=== PATIENT | female | born 1965 | race Caucasian/White ===

== ENCOUNTER → 2016-12-01 | Outpatient (CLI) | payer BC ==
--- NOTE | 2016-12-01 15:55 | MAMMOGRAPHY REPORT ---
BILATERAL DIGITAL SCREENING MAMMOGRAM TOMOSYNTHESIS WITH CAD: 12/01/2016 CLINICAL HISTORY: Routine screening. Patient has no complaints. TECHNIQUE: Breast tomosynthesis in addition to standard 2D mammography was performed. Current study was also evaluated with a Computer Aided Detection (CAD) system. COMPARISON: Comparison is made to exams dated: 08/04/2015 mammogram, 05/08/2013 mammogram, 04/24/2012 mammogram, 04/26/2011 mammogram, and 07/31/2014 mammogram - [facility]. BREAST COMPOSITION: There are scattered areas of fibroglandular density in both breasts. FINDINGS: No suspicious masses, calcifications, or areas of architectural distortion are noted in e ither breast. There has been no significant interval change compared to prior exams. Scattered bilat eral benign-appearing calcifications are not significantly changed. A square marker ahn a mole on the left 12:00 breast. IMPRESSION: ACR BI-RADS CATEGORY 2: BENIGN There is no mammographic evidence of malignancy. A 1 year screening mammogram is recommended. The p atient will receive written notification of the results. Approximately 10% of breast cancers are not detected with mammography. A negative mammographic repor t should not delay biopsy if a clinically suggestive mass is present. Lesly Baird M.D. ah/:12/01/2016 15:24:19 Manager Of Housekeeping: Kemi MONTELONGO(Jessica)(M), [facility] letter sent: Normal 1/2 BI-RADS Code: ACR BI-RADS Category 2: Benign
== END | disposition home or self-care (01) ==
LOC: C.MAMM 13:25
PROVIDERS: ATTEND Obstetrics & Gynecology
DX: Z12.31 Encounter for screening mammogram for malignant neoplasm of breast (principal)

== ENCOUNTER → 2017-02-03 | Outpatient (CLI) | payer BC ==
--- NOTE | 2017-02-03 16:17 | MAMMOGRAPHY REPORT ---
UNILATERAL LEFT DIGITAL DIAGNOSTIC MAMMOGRAM TOMOSYNTHESIS WITH CAD AND TARGETED LEFT ULTRASOUND: 02/03 CLINICAL HISTORY: 51-year-old woman presents with new episodes of bloody left nipple discharge occurr ing over the past week. Additional bloody nipple discharge was elicited during ultrasound scanning f or this exam. TECHNIQUE: Left CC and MLO 2-D digital and tomosynthesis images, spot magnification left CC and ML vi ews were obtained. Current study was also evaluated with a Computer Aided Detection (CAD) system. COMPARISON: Comparison is made to exams dated: 12/01/2016 mammogram, 08/04/2015 mammogram, 07/31/2014 mammogram, 05/08/2013 mammogram, and 04/26/2011 ultrasound - [facility]. BREAST COMPOSITION: There are scattered areas of fibroglandular density in the left breast. FINDINGS: There are punctate, round and rim/coarse calcifications diffusely throughout the middle and anterior left breast. When comparing back to prior available mammograms, the microcalcifications ap pear similar dating back to at least 04/24/2012, given slight difference is in technique comparing [employer] mammograms to [facility] mammograms. The microcalcifications approximately 4 cm in yeung sverse dimension by 4 cm in AP by 4 cm in craniocaudal dimension. Some of the microcalcifications ar e increased compared to the 2009 mammograms. None the calcifications demonstrate definitive layering on the spot magnification ML view to confirm benign milk of calcium. There is no evidence of a new s uspicious mass, focal area of architectural distortion or developing asymmetry. Targeted ultrasound was performed in the periareolar and retroareolar left breast. Bloody nipple dis charge was elicited while scanning in the lower inner periareolar aspect of the breast. Numerous nor mal-appearing milk ducts are seen in the retroareolar aspect of the breast. There is a questionable hypoechoic mass versus fat lobule in the 8:00 periareolar left breast measuring 6.2 x 2.7 mm in the a nti-radial plane. This is difficult to visualize and measure in the radial plane. However, given th e patient's symptoms definitive characterization with ultrasound guided core biopsy is recommended as this could represent an intraductal mass. Additionally, would recommend sampling of some of the rep resentative microcalcifications, given a possible slow increase since 2008. The most prominent group ing is located in the 12:00 anterior left breast. IMPRESSION: ACR BI-RADS CATEGORY 4B: INTERMEDIATE SUSPICION FOR MALIGNANCY, TARGETED ULTRASOUND ACR BI-RADS CATEGORY 4B: INTERMEDIATE SUSPICION FOR MALIGNANCY 1. Ultrasound guided core needle biopsy is recommended for a possible mass versus fat lobule in the 8:00 periareolar left breast measuring 6 mm. 2. Stereotactic guided left breast biopsy is recommended for microcalcifications seen throughout the middle and anterior left breast spanning approximately 4 cm. The most prominent grouping is in the approximate 12:00 anterior left breast and this could be targeted for stereotactic biopsy. These results and recommendations were discussed with the patient at the time of the exam. She tenta tively scheduled the left breast biopsies prior to leaving our department. Pathology results should be closely reviewed to assess if the results could explain the patient's new left bloody nipple disch arge. Otherwise, an MRI may be needed. Approximately 10% of breast cancers are not detected with mammography. A negative mammographic report should not delay biopsy if a clinically suggestive mass is present. Michelle Cruz M.D. ay/:02/03/2017 15:46:41 Charge Account Authorizer: Ankita MONTELONGO(Jessica)(Rivka), [facility] letter sent: Abnormal 4/5 BI-RADS Code: ACR BI-RADS Category 4B: Intermediate Suspicion For Malignancy Ultrasound BI-RADS: ACR BI-RADS Category 4B: Intermediate Suspicion For Malignancy
== END | disposition home or self-care (01) ==
LOC: C.MAMM 09:40
PROVIDERS: ATTEND Nurse Practitioner
DX: N64.52 Nipple discharge (principal); R92.0 Mammographic microcalcification found on diagnostic imaging of breast

== ENCOUNTER → 2017-04-13 | Outpatient (CLI) | payer BC ==
[~2017-04-13] MED LIST: GADAVIST IV PRN
--- NOTE | 2017-04-14 14:04 | MAMMOGRAPHY REPORT ---
BREAST MRI OF BOTH BREASTS : 04/13/2017 CLINICAL HISTORY: 51-year-old woman with a history of left bloody nipple discharge who presented for diagnostic workup in February 2017. A subtle, possible intraductal mass was identified in the subareolar left breast for which core biopsy was performed, and stereotactic biopsy was performed of punctate m icrocalcifications in the 12:00 anterior left breast. Both biopsies yielded benign results, but no p apilloma or other abnormality to explain the nipple discharge. Patient presents for further evaluati on. COMPARISON: Comparison is made to exams dated: 02/09/2017 mammogram, 02/09/2017 ultrasound biopsy, 017 stereotactic biopsy, 02/03/2017 mammogram, 12/01/2016 mammogram, and 08/04/2015 mammogram - [facility]. TECHNIQUE: Using a 1.5 Helene magnet and dedicated breast coil, multisequence axial images were obtain ed through the breasts. After uneventful IV administration of 7 mL of Gadavist, dynamic multiphase c ontrast-enhanced axial images, and sagittal postcontrast were obtained. Temporal subtraction axial i mages and 3-D MIP images are provided. Everything was then reviewed on a 3-D workstation, [employer]. FINDINGS: There is minimal background parenchymal enhancement of the breasts. There is a small, 2.7 x 5.4 x 2.7 mm tiny focus of enhancement in the subareolar left breast, 8 mm deep to the nipple (axia l page 75/116, sagittal page 25/120). This subtle focus of enhancement is within 5 mm of the suscept ibility artifact from the ribbon-shaped biopsy marker clip denoting the site of prior benign ultrasou nd-guided core biopsy. It is T2 isointense, and demonstrates persistent kinetics. Given the small s ize of this focus of enhancement, it is unclear if it could simply be within the range of normal back ground, represent mild post biopsy change or possibly represent a small intraductal mass such as a pa pilloma. Susceptibility artifact from a second biopsy marker is seen in the 12:[address], 2.5 cm from the nipple, which denotes the site of prior benign stereotactic biopsy. There is no other suspicious enhancing mass, suspicious on mass enhancement, architectural distortion or suspicio us kinetics bilaterally. No focal skin thickening or nipple retraction. No suspicious axillary lymp hadenopathy bilaterally. IMPRESSION: ACR BI-RADS CATEGORY 4: SUSPICIOUS 1. There is no evidence of a suspicious mass or suspicious non-mass enhancement within either breast . 2. There is a single small focus of enhancement, measuring 2.7 x 5.4 x 2.7 mm, in the subareolar ant erior left breast, within close proximity, approximately 5 mm, of the ribbon-shaped biopsy marker cli p denoting the site of ultrasound-guided core biopsy. Given the small size it is difficult to determ ine if this could be within the range of background enhancement, post biopsy changes or possibly repr esent a small intraductal papilloma. If the patient is still symptomatic with brownish/bloody nipple discharge, can consider localizing the ribbon-shaped biopsy marker clip and taking additional tissue 5 mm medially and 4 mm superior. Alternatively, if the patient is asymptomatic, can consider a foll ow-up MRI to assess stability in 6 months, given the two recent benign biopsies. Michelle Cruz M.D. ay/:04/13/2017 21:49:51 Sugar Boiler: regional branch manager, [facility] letter sent: Abnormal 4/5 BI-RADS Code: ACR BI-RADS Category 4: Suspicious
== END | disposition home or self-care (01) ==
LOC: C.MRI 06:40
PROVIDERS: ATTEND Surgery
DX: N64.52 Nipple discharge (principal)

== ENCOUNTER → 2017-08-01 | Outpatient (CLI) | payer BC ==
--- NOTE | 2017-08-01 09:36 | DIAGNOSTIC IMAGING REPORT ---
CHEST 2 VIEWS ROUTINE HISTORY: 52 years-old Female R05 acute productive cough COMPARISON: None available TECHNIQUE: PA and lateral views of the chest FINDINGS: Cardiomediastinal and hilar silhouettes are within normal limits. There is no pneumothorax, pleural effusion, focal airspace consolidation or overt pulmonary edema. Bones of the chest are grossly intact. IMPRESSION: No acute cardiopulmonary process. The above report was generated using voice recognition software. It may contain grammatical, syntax or spelling errors. Electronically signed by: Carlos Ray M.D. 08/01/2017 9:34 AM Dictated Date/Time: 08/01/2017 9:33 AM
== END | disposition home or self-care (01) ==
LOC: C.RAD1850 09:20
PROVIDERS: ATTEND Student in an Organized Health Care Education/Training Program
DX: R05 Cough (principal)

== ENCOUNTER → 2017-08-04 | Outpatient (CLI) | payer BC ==
[2017-08-04 19:29] LABS: CREATININE 0.79 mg/dl (0.60-1.20)
== END | disposition home or self-care (01) ==
LOC: C.LAB 18:25
PROVIDERS: ATTEND Family Medicine
DX: R05 Cough (principal)

== ENCOUNTER → 2017-12-05 | Outpatient (CLI) | payer OTHER ==
--- NOTE | 2017-12-06 07:46 | MAMMOGRAPHY REPORT ---
THIS REPORT HAS BEEN AMENDED. BILATERAL DIGITAL SCREENING MAMMOGRAM TOMOSYNTHESIS WITH CAD: 12/05/2017 CLINICAL HISTORY: Routine screening. TECHNIQUE: Breast tomosynthesis in addition to standard 2D mammography was performed. Current study was also evaluated with a Computer Aided Detection (CAD) system. COMPARISON: Comparison is made to exams dated: 12/01/2016 mammogram, 08/04/2015 mammogram, 07/31/2014 mammogram, 05/08/2013 mammogram, 04/24/2012 mammogram, and 02/09/2017 mammogram - [facility]. BREAST COMPOSITION: The tissue of both breasts is heterogeneously dense, which may obscure small mas ses. FINDINGS: There are diffuse bilateral benign-appearing punctate microcalcifications in the breasts. 2 stable metallic biopsy markers in the anterior subareolar left breast. No obvious new mass, asymme try, architectural distortion or cluster of microcalcifications is seen. IMPRESSION: ACR BI-RADS CATEGORY 0: INCOMPLETE EVALUATION: NEED ADDITIONAL IMAGING EVALUATION 1. Stable bilateral mammograms, including postbiopsy changes in the left breast, without definite ma mmographic evidence of malignancy. 2. However, a prior breast MRI performed in April 2017 was coded as BI-RADS 3, probably benign, and a six-month follow-up breast MRI was recommended to ensure stability of a small enhancing focus in t scott anterior left breast. Additional clinical information is also needed as to if the patient is expe riencing any further episodes of nipple discharge. The patient will be called to schedule the MRI appointment. Approximately 10% of breast cancers are not detected with mammography. A negative mammographic report should not delay biopsy if a clinically suggestive mass is present. Michelle Cruz M.D. ay/:12/05/2017 21:17:53 Resident Associate: Kemi MONTELONGO(R)(M), [facility] letter sent: Addl Imaging 0 BI-RADS Code: ACR BI-RADS Category 0: Incomplete Evaluation: Need Additional Imaging Evaluation AMENDMENT: 12/13/2017 Michelle Cruz M.D. A prior MRI report dated 10/17/2017 performed at [facility] became available and based on sugar chavez MRI interpretation, the exam was coded as BI-RADS 1, negative. The report stated that the previou sly observed focus of enhancement in the subareolar left breast was no longer identified. Therefore, given that the current bilateral mammograms are stable and no MRI evidence of intraductal mass or ma lignancy was seen, would recommend routine screening mammography in 1 year, unless the patient has an y new symptoms. Amended BI-RADS: ACR BI-RADS Category 2: Benign letter sent: Normal 09/06
== END | disposition home or self-care (01) ==
LOC: C.MAMM 08:38
PROVIDERS: ATTEND Obstetrics & Gynecology
DX: Z12.31 Encounter for screening mammogram for malignant neoplasm of breast (principal); R92.8 Other abnormal and inconclusive findings on diagnostic imaging of breast

== ENCOUNTER → 2017-12-20 | Outpatient (CLI) | payer OTHER | END | disposition home or self-care (01) | LOC: C.RC 12:45 | PROVIDERS: ATTEND Family Medicine | DX: R05 Cough (principal) ==

== ENCOUNTER 2023-03-16 09:56 | Inpatient (IN) ==
--- NOTE | 2023-03-16 10:07 | Emergency Department Note ---
Impression & Plan Right lower lobe pneumonia, Nausea vomiting and diarrhea, COPD (chronic obstructive pulmonary disease), Hypomagnesemia, Mild renal insufficiency, Hypotension ED Provider Note NAME: CHATA BUCK AGE: 57 SEX: F ARRIVES VIA: Walk-In INFORMANT: Patient ED PROVIDER(S): Cesar Rodas MD CHIEF COMPLAINT: Fever, cough, referred PLAN: Disposition: Admit MEDICAL DECISION MAKING: The patient is a pleasant 57-year-old woman with a past medical history of recently suspected COPD where she is undergoing further testing, history of lichen planus on cyclosporin who presents to the emergency department referred from urgent care for fevers, cough, congestion, shortness of breath with nausea, vomiting and diarrhea ongoing for the past 48 hours. She reports having 6-8 episodes of diarrhea a day. She denies chest pain but does feel short of breath. She reports some abdominal soreness but denies any discrete area of pain. Denies any urinary symptoms. She denies any sick contacts. She denies any known tick bites. On arrival the patient is fatigued and uncomfortable but no acute distress, afebrile with temperature of 37.6 heart in the 100s and vital signs otherwise stable. O2 saturation is 93% on room air. She appears clinically dry. She has intermittent wheeze and rhonchi bilateral lung johnson with normal respiratory effort. EKG without overt acute ischemia. CXR negative for acute cardiopulmonary process. WBC 13.4K with neutrophil predominance though no left shift. H/H and platelets within normal limits. Chemistry without metabolic acidosis. Creatinine 1.2 consistent with patient's clinically dry appearance reflecting mild acute renal insufficiency. Lactic acid 0.7, within normal limits. Magnesium 1.6 with repletion provided. LFTs unremarkable. High-sensitivity troponin 6.2, within normal limits. Lipase not elevated. Procalcitonin is not elevated. UA without convincing evidence of infection. Respiratory viral panel/Bio[employer] was negative. CTA of the chest was performed was negative for PE. Note is made of small peripheral densities in the base of right lower lobe which is suspicious for pneumonitis and in the clinical context of pneumonia. Additional note is made of suspected small airway disease with mosaic attenuation seen throughout both lungs. CT of the abdomen pelvis demonstrates question of cystitis though patient denies urinary symptoms and UA without evidence of infection. Otherwise no intra-abdominal findings. Of note, while the patient did present normotensive she did develop hypotension which was subsequently fluid responsive following 2 L of IV fluid hydration. Treatment for CAP initiated with ceftriaxone and doxycycline. The patient did report feeling improved following steroids and DuoNeb. She does agree with plan for admission for further management given her immunocompromise status and pneumonia. Case was discussed with Dr. Liu, [facility], who will evaluate the patient for admission. Triage Nursing notes reviewed and agree them. Prior/outside medical records reviewed Vital Signs: reviewed Differential diagnosis: Reactive airway disease, pneumonia, pneumothorax, COPD, CHF, infections, cardiac ischemia, pulmonary embolism, musculoskeletal, gastrointestinal, as well as other pathologies. ER treatment provided: See below. Diagnostics interpreted by me: ECG: Sinus tachycardia, 101 bpm, no ectopy, but branch block, no overt ST depression, QTc 474, QRS 124. Cardiac Monitoring: An order for continuous cardiac monitoring was placed and demonstrated sinus tachycardia, 101 bpm, no ectopy. Laboratory studies: See below Imaging studies: See below Consultation(s): Case was discussed with Dr. Liu, [facility], who will evaluate the patient for admission. HPI: The patient is a pleasant 57-year-old woman with a past medical history of recently suspected COPD where she is undergoing further testing, history of lichen planus on cyclosporin who presents to the emergency department referred from urgent care for fevers, cough, congestion, shortness of breath with nausea, vomiting and diarrhea ongoing for the past 48 hours. She reports having 6-8 episodes of diarrhea a day. She denies chest pain but does feel short of breath. She reports some abdominal soreness but denies any discrete area of pain. Denies any urinary symptoms. She denies any sick contacts. She denies any known tick bites. ROS: See above HPI for pertinent positives & negatives. A total of 10 systems reviewed and were otherwise negative. VITALS:See Below PHYSICAL EXAMINATION: GENERAL: Awake, alert, fatigued/uncomfortable-appearing, in no distress HENT: Normocephalic, atraumatic. Oropharynx with dry mucous membranes and otherwise unremarkable. EYES: Normal conjunctiva. Sclera non-icteric. NECK: Supple. No nuchal rigidity. FROM. No JVD. RESPIRATORY: Intermittent wheeze and rhonchi bilateral lung johnson with normal respiratory effort. CARDIAC: Tachycardic rate, normal rhythm. Extremities warm and well perfused. Pulses equal. ABDOMEN: Soft, non-distended. No tenderness to palpation. No rebound or guarding. No masses. RECTAL: Deferred. MUSCULOSKELETAL: Chest examination reveals no tenderness. The back is sym metrical on inspection without obvious abnormality. There is no CVA tenderness to palpation. No joint edema. LOWER EXTREMITIES: Calves are equal size bilaterally and non-tender. No edema. No discoloration. NEURO: Normal sensorium. No sensory or motor deficits noted. SKIN: No rash or jaundice noted. ED COURSE: Critical Care: I have personally spent greater than 35 minutes of critical care time in the direct management of this patient. This includes bedside care, interpretation of diagnostic studies, and testing, discussion with consultants, patient, and family members, and other required patient management activities. This 35 minutes is in excess of all separately billable procedures. Cesar Rodas MD Past Med/Surg History Medical History Chronic back pain Chronic serous otitis media of right ear Chronic sinusitis Esophageal stricture x2 Hyperlipidemia NO MEDS Lesion of ear canal Lichen planus Mixed conductive and sensorineural hearing loss of both ears Mixed hearing loss of right ear Oral thrush re-occurring r/t antibiotics and steroids Otitis externa of left ear Otorrhea, right ear Peptic ulcer disease as a child Postnasal drip Psoriasis Scoliosis Sensorineural hearing loss of both ears Surgical History H/O vaginal hysterectomy History of colonoscopy History of dilatation and curettage x3 History of myringotomy BMT History of tooth extraction WISDOM TEETH S/P dilatation of esophageal stricture S/P tube myringotomy right ear T-Tube Family History Grandmother Family history of diabetes mellitus Sinusitis Family/Other Hypertension grandparent Aunt Cancer Sister Cancer Mother Allergies Sinusitis Cancer Other No family history of adverse response to anesthesia No family history of bleeding disorder Social History Smoking Status: Never smoker Second Hand Exposure: Yes (as a child); Do You Dip or Chew Tobacco: No; Hx Alcohol Use: No Hx Substance Use: No Preferred Language: Burmese Communication Ability: Effective 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 Beliefs That Will Affect Care: None Current Living Situation: Spouse current occupational status: employed current occupation: computer science instructor Feels Safe at Home: Yes Assistive Devices: Glasses Allergies Allergies Allergy/AdvReac Type Severity Reaction Status Date / Time Penicillins Allergy Unknown RASH & Verified 03/16/23 11:31 BLACKED OUT Home Meds Home Medications Medication Instructions Recorded Confirmed lifitegrast 5 % eye drops in a 2 drp ophthalmic (eye) BID 06/29/18 03/16/23 dropperette (Xiidra) multivitamin 1 tab PO DAILY 07/12/19 03/16/23 Lactobacillus acidophilus 1.5 mg 1,000 mmu cells PO DAILY 09/03/19 03/16/23 (250 million cell) capsule (Probiotic Acidophilus) omeprazole 40 mg capsule,delayed 40 mg PO BID 02/05/20 03/16/23 release cyclosporine 25 mg capsule See Rx Instructions .Route .COMPLEX 03/16/23 03/16/23 hydroxychloroquine 200 mg tablet 200 mg PO BID 03/16/23 03/16/23 latanoprost 0.005 % eye drops 1 drp ophthalmic (eye) HS 03/16/23 03/16/23 Previous Rx's Medication Instructions Recorded azelastine 137 mcg (0.1 %) nasal 2 spray intranasal BID #30 mL 02/06/20 spray aerosol Results & Data (ED) Vital Signs Vital Signs - 24 hr 03/16/23 09:57 03/16/23 10:43 03/16/23 11:10 Temperature 37.6 C H Temperature Source Oral Pulse Rate 108 H 108 H Pulse Rate [Apical] 106 H Pulse Rhythm Regular Pulse Rhythm [Apical] Respiratory Rate 18 18 18 Respiratory Effort / Characteristics Non-Labored Respiratory Depth Normal Blood Pressure 121/68 Blood Pressure [Left Arm] 88/62 L Blood Pressure Mean 85 Blood Pressure Mean [Left Arm] 70 Blood Pressure Position [Left Arm] Pulse Oximetry 93 93 89 L Oxygen Delivery Method Room Air Room Air Room Air Oxygen Flow Rate Sepsis Recent Fever Within 48 Hours Yes Sepsis New/Unexplained Change in Mental Status No Sepsis Action Taken by Nursing No Action Required Pulse Oximetry Post Tiitration 03/16/23 11:13 03/16/23 11:30 03/16/23 11:30 Temperature Temperature Source Pulse Rate Pulse Rate [Apical] 102 H Pulse Rhythm Pulse Rhythm [Apical] Regular Respiratory Rate 21 Respiratory Effort / Characteristics Non-Labored Respiratory Depth Normal Blood Pressure Blood Pressure [Left Arm] 90/65 L Blood Pressure Mean Blood Pressure Mean [Left Arm] 73 Blood Pressure Position [Left Arm] Sitting Pulse Oximetry 91 86 L 94 Oxygen Delivery Method Room Air Nasal Cannula Nasal Cannula Oxygen Flow Rate 2 2 Sepsis Recent Fever Within 48 Hours Sepsis New/Unexplained Change in Mental Status Sepsis Action Taken by Nursing Pulse Oximetry Post Tiitration 93 03/16/23 12:18 03/16/23 12:37 03/16/23 12:43 Temperature 37.6 C H Temperature Source Oral Pulse Rate 91 H Pulse Rate [Apical] 86 Pulse Rhythm Pulse Rhythm [Apical] Respiratory Rate 18 Respiratory Effort / Characteristics Respiratory Depth Blood Pressure Blood Pressure [Left Arm] 88/52 L Blood Pressure Mean Blood Pressure Mean [Left Arm] 64 Blood Pressure Position [Left Arm] Pulse Oximetry 93 Oxygen Delivery Method Nasal Cannula Oxygen Flow Rate 2 Sepsis Recent Fever Within 48 Hours Sepsis New/Unexplained Change in Mental Status Sepsis Action Taken by Nursing Pulse Oximetry Post Tiitration 03/16/23 13:40 03/16/23 14:25 03/16/23 15:00 Temperature 37 C Temperature Source Oral Pulse Rate 77 Pulse Rate [Apical] 82 70 Pulse Rhythm Pulse Rhythm [Apical] Respiratory Rate 21 19 Respiratory Effort / Characteristics Respiratory Depth Normal Blood Pressure 101/57 L Blood Pressure [Left Arm] 99/58 L Blood Pressure Mean 71 Blood Pressure Mean [Left Arm] 71 Blood Pressure Position [Left Arm] Pulse Oximetry 96 95 94 Oxygen Delivery Method Nasal Cannula Oxygen Flow Rate 2 Sepsis Recent Fever Within 48 Hours Sepsis New/Unexplained Change in Mental Status Sepsis Action Taken by Nursing Pulse Oximetry Post Tiitration 03/16/23 16:55 Temperature Temperature Source Pulse Rate Pulse Rate [Apical] 74 Pulse Rhythm Pulse Rhythm [Apical] Regular Respiratory Rate 20 Respiratory Effort / Characteristics Respiratory Depth Blood Pressure Blood Pressure [Left Arm] 99/58 L Blood Pressure Mean Blood Pressure Mean [Left Arm] 71 Blood Pressure Position [Left Arm] Sitting Pulse Oximetry 94 Oxygen Delivery Method Nasal Cannula Oxygen Flow Rate 2 Sepsis Recent Fever Within 48 Hours Sepsis New/Unexplained Change in Mental Status Sepsis Action Taken by Nursing Pulse Oximetry Post Tiitration Laboratory Data Attestation: I reviewed the patient's lab results. 03/16/23 10:35 03/16/23 10:35 Lab Results 03/16/23 03/16/23 03/16/23 Range/Units 10:35 10:35 10:45 WBC 13.47 H (4.8-10.8) K/ul RBC 4.75 (4.20-5.40) M/uL Hgb 13.2 (12.0-16.0) g/dl Hct 39.0 (37.0-47.0) % MCV 82.1 (80.0-100.0) fL MCH 27.8 (25.0-34.0) pg MCHC 33.8 (32.0-36.0) g/dL RDW Std Deviation 40.6 (36.4-46.3) fL RDW Coeff of Tresa 13.6 (11.5-14.5) % Plt Count 238 (130-400) K/uL MPV 11.8 (9.4-12.4) fL Immature Gran % (Auto) 0.4 % Neut % (Auto) 88.8 % Lymph % (Auto) 5.8 % [place] % (Auto) 4.8 % Eos % (Auto) 0.0 % Baso % (Auto) 0.2 % Neut # (Auto) 11.96 H (1.40-6.50) K/uL Lymph # (Auto) 0.78 L (1.2-3.4) K/uL [place] # (Auto) 0.64 H (0.11-0.59) K/uL Eos # (Auto) 0.00 (0-0.50) K/uL Baso # (Auto) 0.03 (0-0.2) K/uL Immature Gran # (Auto) 0.06 (0.01-0.20) K/uL Sodium 137 (136-145) mmol/L Potassium 4.1 (3.5-5.1) mmol/L Chloride 105 (98-107) mmol/L Carbon Dioxide 24 (21-32) mmol/L Anion Gap 8 (3-11) BUN 14 (6-23) mg/dl Creatinine 1.21 H (0.6-1.2) mg/dl Est Cr Clr Drug Dosing 46.7 ml/min Est GFR ( Amer) 57.9 ml/min Est GFR (Non-Af Amer) 50.0 ml/min BUN/Creatinine Ratio 11.6 (10-20) Glucose 97 (70-99(Fasting)) mg/dl Lactate (0.4-2.0) mmol/L Calcium 8.9 (8.6-10.3) mg/dl Magnesium 1.6 L (1.7-2.4) mg/dl Total Bilirubin 0.8 (0.2-1.0) mg/dl AST 22 (13-39) U/L ALT 20 (7-52) U/L Alkaline Phosphatase 77 (34-104) U/L Troponin I High Sens 6.2 (0-14) pg/ml Total Protein 7.4 (6.0-8.3) gm/dl Albumin 4.5 (3.4-5.0) gm/dl Globulin 2.9 (2.5-4.0) gm/dl Albumin/Globulin Ratio 1.6 (0.9-2) Lipase 25 (11-82) U/L Procalcitonin (0-0.5) ng/ml Urine Color Urine Appearance (Clear) Urine pH (4.5-7.5) Ur Specific [place] (1.000-1.030) Urine Protein (Negative) Urine Glucose (UA) (Negative) Urine Ketones (Negative) Urine Blood (Negative) Urine Nitrite (Negative) Urine Bilirubin (Negative) Urine Urobilinogen (Negative) Ur Leukocyte Esterase (Negative) Urine WBC (Auto) (0-5) /hpf Urine RBC (Auto) (0-4) /hpf U Hyaline Cast (Auto) (0-5) /lpf U Epithel Cells (Auto) (0-5) /lpf Urine Bacteria (Auto) (Negative) Adenovirus (PCR) Not Detected (NotDetected) B. pertussis DNA (PCR) Not Detected (NotDetected) B.parapertussis DNA PCR Not Detected (NotDetected) C. pneumoniae DNA (PCR) Not Detected (NotDetected) Coronavirus OC43 (PCR) Not Detected (NotDetected) Coronavirus HKU1 (PCR) Not Detected (NotDetected) Coronavirus 229E (PCR) Not Detected (NotDetected) SARS-CoV-2 (PCR) Not Detected (NotDetected) Coronavirus NL63 (PCR) Not Detected (NotDetected) Human Metapneumovir PCR Not Detected (NotDetected) Influenza Type A (PCR) Not Detected (NotDetected) Influenza Type B (PCR) Not Detected (NotDetected) M. pneumoniae (PCR) Not Detected (NotDetected) Parainfluenza 1 (PCR) Not Detected (NotDetected) Parainfluenza 2 (PCR) Not Detected (NotDetected) Parainfluenza 3 (PCR) Not Detected (NotDetected) Parainfluenza 4 (PCR) Not Detected (NotDetected) RSV (PCR) Not Detected (NotDetected) Entero/Rhino (PCR) Not Detected (NotDetected) 03/16/23 03/16/23 03/16/23 Range/Units 12:50 12:53 15:30 WBC (4.8-10.8) K/ul RBC (4.20-5.40) M/uL Hgb (12.0-16.0) g/dl Hct (37.0-47.0) % MCV (80.0-100.0) fL MCH (25.0-34.0) pg MCHC (32.0-36.0) g/dL RDW Std Deviation (36.4-46.3) fL RDW Coeff of Tresa (11.5-14.5) % Plt Count (130-400) K/uL MPV (9.4-12.4) fL Immature Gran % (Auto) % Neut % (Auto) % Lymph % (Auto) % [place] % (Auto) % Eos % (Auto) % Baso % (Auto) % Neut # (Auto) (1.40-6.50) K/uL Lymph # (Auto) (1.2-3.4) K/uL [place] # (Auto) (0.11-0.59) K/uL Eos # (Auto) (0-0.50) K/uL Baso # (Auto) (0-0.2) K/uL Immature Gran # (Auto) (0.01-0.20) K/uL Sodium (136-145) mmol/L Potassium (3.5-5.1) mmol/L Chloride (98-107) mmol/L Carbon Dioxide (21-32) mmol/L Anion Gap (3-11) BUN (6-23) mg/dl Creatinine (0.6-1.2) mg/dl Est Cr Clr Drug Dosing ml/min Est GFR ( Amer) ml/min Est GFR (Non-Af Amer) ml/min BUN/Creatinine Ratio (10-20) Glucose (70-99(Fasting)) mg/dl Lactate 0.7 (0.4-2.0) mmol/L Calcium (8.6-10.3) mg/dl Magnesium (1.7-2.4) mg/dl Total Bilirubin (0.2-1.0) mg/dl AST (13-39) U/L ALT (7-52) U/L Alkaline Phosphatase (34-104) U/L Troponin I High Sens (0-14) pg/ml Total Protein (6.0-8.3) gm/dl Albumin (3.4-5.0) gm/dl Globulin (2.5-4.0) gm/dl Albumin/Globulin Ratio (0.9-2) Lipase (11-82) U/L Procalcitonin 0.13 (0-0.5) ng/ml Urine Color Yellow Urine Appearance Clear (Clear) Urine pH 6.5 (4.5-7.5) Ur Specific [place] 1.020 (1.000-1.030) Urine Protein 1+ H (Negative) Urine Glucose (UA) Negative (Negative) Urine Ketones Negative (Negative) Urine Blood Trace H (Negative) Urine Nitrite Negative (Negative) Urine Bilirubin Negative (Negative) Urine Urobilinogen Negative (Negative) Ur Leukocyte Esterase Negative (Negative) Urine WBC (Auto) 1-5 (0-5) /hpf Urine RBC (Auto) 5-10 H (0-4) /hpf U Hyaline Cast (Auto) 1-5 (0-5) /lpf U Epithel Cells (Auto) 10-20 H (0-5) /lpf Urine Bacteria (Auto) Negative (Negative) Adenovirus (PCR) (NotDetected) B. pertussis DNA (PCR) (NotDetected) B.parapertussis DNA PCR (NotDetected) C. pneumoniae DNA (PCR) (NotDetected) Coronavirus OC43 (PCR) (NotDetected) Coronavirus HKU1 (PCR) (NotDetected) Coronavirus 229E (PCR) (NotDetected) SARS-CoV-2 (PCR) (NotDetected) Coronavirus NL63 (PCR) (NotDetected) Human Metapneumovir PCR (NotDetected) Influenza Type A (PCR) (NotDetected) Influenza Type B (PCR) (NotDetected) M. pneumoniae (PCR) (NotDetected) Parainfluenza 1 (PCR) (NotDetected) Parainfluenza 2 (PCR) (NotDetected) Parainfluenza 3 (PCR) (NotDetected) Parainfluenza 4 (PCR) (NotDetected) RSV (PCR) (NotDetected) Entero/Rhino (PCR) (NotDetected) Administered Medications Doxycycline Hyclate 100 mg/ (Dextrose) 110 mls @ 50 mls/hr IV NOW STA Stop: 03/16/23 18:10 Last Admin: 03/16/23 16:47 Dose: 50 mls/hr Documented By: JEFFRY Discontinued Medications Albuterol (Albut/Ipratrop 3mg/0.5mg Neb 3 Ml Vial) 3 ml NEB NOW STA; Protocol Stop: 03/16/23 10:26 Last Admin: 03/16/23 10:52 Dose: 3 ml Documented By: SHANE Sodium Chloride (Nss 1000ml) 1,000 mls @ 999 mls/hr IV .Q1H1M ONE Stop: 03/16/23 11:20 Last Infusion: 03/16/23 11:54 Dose: 0 mls/hr Documented By: Admin: 03/16/23 10:47 Dose: 999 mls/hr Documented By: SHANE Acetaminophen (Ofirmev) 1,000 mg in 100 mls @ 400 mls/hr IV NOW STA Stop: 03/16/23 10:34 Last Infusion: 03/16/23 11:54 Dose: 0 mls/hr Documented By: Admin: 03/16/23 10:52 Dose: 400 mls/hr Documented By: SHANE Famotidine (Pepcid 20mg Iv Push) 20 mg in 5 mls @ 2.5 mls/min IV NOW STA Stop: 03/16/23 10:23 Last Admin: 03/16/23 10:50 Dose: 2.5 mls/min Documented By: SHANE Sodium Chloride (Nss 1000ml) 1,000 mls @ 999 mls/hr IV .Q1H1M ONE Stop: 03/16/23 13:31 Last Infusion: 03/16/23 13:40 Dose: 0 mls/hr Documented By: Admin: 03/16/23 12:35 Dose: 999 mls/hr Documented By: ÁNGELA Magnesium Sulfate/Dextrose (Magnesium Sulfate / D5w) 1 gm in 100 mls @ 100 mls/hr IV NOW STA Stop: 03/16/23 13:40 Last Infusion: 03/16/23 14:24 Dose: 0 mls/hr Documented By: Admin: 03/16/23 12:54 Dose: 100 mls/hr Documented By: JEFFRY Ceftriaxone Sodium (Rocephin) 2,000 mg in 70 mls @ 140 mls/hr IV NOW STA Stop: 03/16/23 15:40 Last Infusion: 03/16/23 16:18 Dose: 0 mls/hr Documented By: Admin: 03/16/23 15:37 Dose: 140 mls/hr Documented By: MADHURI Ioversol (Optiray 320 125ml) 120 ml IV ONCE ONE Stop: 03/16/23 13:27 Last Admin: 03/16/23 13:26 Dose: 120 ml Documented By: EMMA Methylprednisolone (Methylprednisolone 125 Mg/2 Ml Vial) 125 mg IV NOW STA Stop: 03/16/23 10:21 Last Admin: 03/16/23 10:48 Dose: 125 mg Documented By: SHANE Ondansetron HCl (Ondansetron Inj 2 Mg/Ml 2 Ml Vial) 4 mg IV NOW STA Stop: 03/16/23 10:23 Last Admin: 03/16/23 10:47 Dose: 4 mg Documented By: SHANE Imaging Data Radiologist's Impression: Chest X-Ray 03/16/23 10:21 XR chest 1V portable CLINICAL HISTORY: cough, fever TECHNIQUE: Single frontal radiograph of the chest was obtained. Comparison: None available at the time of this dictation. FINDINGS: No lines and tubes are seen. The cardiomediastinal silhouette is normal. The lungs are clear. No evidence of pleural effusion or pneumothorax. IMPRESSION: No acute abnormalities and in particular no radiographic evidence of pneumonia. ACT 112: Negative or not required by law. Electronically signed by: Trevor Mazariegos M.D. 03/16/2023 11:22 AM Chest CTA 03/16/23 12:31 CHEST CTA for PULMONARY ARTERIES CT DOSE: 2078.36 mGy.cm HISTORY: chest pain, sob, hypotensive, r/o PE TECHNIQUE: Multiaxial CT images of the chest were performed following the intravenous administration of contrast to evaluate the pulmonary arteries. 3D/Maximal intensity projection images were also obtained. Sagittal and coronal reformations were also reviewed. A dose lowering technique was utilized adhering to the principles of ALARA. COMPARISON STUDY: Chest CT 12/05/2018. FINDINGS: There is a 1.1 cm right thyroid nodule. This does not meet CT criteria for follow-up. Normal caliber thoracic aorta with no evidence for a dissection. No filling defects within the pulmonary arteries to suggest a pulmonary embolus. Normal esophagus. Limited views of the upper abdomen demonstrate a normal liver, spleen, and adrenal glands. No mediastinal or hilar lymphadenopathy. The heart is normal in size. No pleural or pericardial effusions. No acute fractures identified in the chest. No pneumothorax. The central airways are patent. Linear densities within the right middle lobe and lingula favor subsegmental atelectasis are scarring. There are small peripheral densities within the base of the right lower lobe. These are nonspecific but could represent a mild pneumonitis. There is a mosaic attenuation seen throughout the lungs. This favors air trapping. This could be due to small airways or small vessel disease. An atypical pneumonitis could also have a similar appearance. A 4 mm subpleural nodule within the left lower lobe on image 68. IMPRESSION: 1. No evidence for a pulmonary embolus. 2. There are small peripheral densities within the base of the right lower lobe. These are nonspecific but could represent a mild pneumonitis. 3. There is a mosaic attenuation seen throughout the lungs. This favors air trapping. This could be due to small airways or small vessel disease. An atypical pneumonitis could also have a similar appearance. 4. A 4 mm subpleural nodule within the left lower lobe. Please refer to below summary of Fleischner criteria recommendations for follow- up of incidental CT nodules (Sophie Michel, Guidelines for management of small p ulmonary nodules detected on CT scans: A statement from the Fleischner Society, Radiology 237: [phone].) SOLID NODULES Solitary nodule size: <6 mm * Low risk patients: no follow-up needed * high risk patients: optional CT at 12 months Solitary nodule size: 6-8 mm * Low risk patients: follow-up at 6-12 months, then consider further follow-up at 18-24 months * high risk patients: initial follow-up CT at 6-12 months and then at 18-24 months if no change Solitary nodule size: >8 mm * either low or high risk patients - consider follow-up CT at 3 months, and/or CT-PET, and/or biopsy Multiple nodules size: <6 mm * Low risk patients: no routine follow-up * high risk patients: optional CT at 12 months Multiple nodules size: 6-8 mm * Low risk patients: follow-up at 3-6 months, then consider further follow-up at 18-24 months * high risk patients: follow-up at 3-6 months, then at 18-24 months if no change Multiple nodules size: >8 mm * Low risk patients: follow-up at 3-6 months, then consider further follow-up at 18-24 months * high risk patients: follow-up at 3-6 months, then at 18-24 months if no change Note: newly detected indeterminate nodule in persons 35 years of age or older. * Low risk patients: minimal or absent history of smoking and/or other known risk factors * high risk patients: history of smoking or of other known risk factors (e.g. first degree relative with lung cancer, or exposure to asbestos, radon, uranium) * if a nodule up to 8 mm is partly solid or is ground glass further follow-up is required after 24 months to exclude possible slow growing adenocarcinoma (GEORGE) SUBSOLID NODULES Solitary pure ground-glass nodule * nodule size <6 mm - no CT follow-up required * nodule size >=6 mm - follow-up CT at 6-12 months, then every 2 years until 5 years Solitary part-solid nodule * nodule size <6 mm - no CT follow-up required * nodule size >=6 mm - follow-up CT at 3-6 months. If unchanged, and solid component remains <6 mm, then annual follow-up for 5 years Multiple subsolid nodules * nodule size <6 mm - follow-up CT at 3-6 months, consider further follow-up at 2 and 4 years if stable * nodule size >=6 mm - follow-up CT at 3-6 months, subsequent management based on the most suspicious nodule(s) ACT 112: Negative or not required by law. Electronically signed by: Tay Vidales M.D. 03/16/2023 3:21 PM Abdomen/Pelvis CT 03/16/23 12:40 CT SCAN OF THE ABDOMEN AND PELVIS WITH IV CONTRAST CLINICAL HISTORY: Fever. Nausea and vomiting. Diarrhea. COMPARISON STUDY: No priors. TECHNIQUE: Following the IV administration of 120 cc of Optiray 320, CT scan of the abdomen and pelvis is performed from the lung bases to the proximal femora. Images are reviewed in the axial, sagittal, and coronal planes. IV contrast was administered without complication. A dose lowering technique was utilized adhering to the principles of ALARA. FINDINGS: Lung bases: The heart is normal in size and without pericardial effusion. There is bibasilar scarring/atelectasis. There is mild bibasilar bronchiectasis. Air- trapping is seen in the lower lobes. No airspace consolidation or pleural effusion is identified. There is a small hiatal hernia. Liver: The contrast-enhanced liver is enlarged, measuring 20.2 cm in length. The liver is otherwise normal in contour and attenuation. There is no intrahepatic biliary ductal dilatation. The hepatic veins and portal veins are patent. Gallbladder: Unremarkable. Spleen: Normal in size and attenuation. Pancreas: Unremarkable. Adrenal glands: Unremarkable. Kidneys: The contrast enhanced kidneys are normal in size and without hydro nephrosis. The kidneys enhance symmetrically. Abdominal vasculature: The abdominal aorta is normal in course and caliber. Bowel: There is mild colonic diverticulosis without CT evidence of acute diverticulitis. No bowel obstruction is seen. Some mucosal fat deposition throughout the colon is nonspecific and has been described in the setting of ch ronic inflammation. The appendix is well-visualized and normal. Peritoneum: There is no intraperitoneal free air or abdominal ascites. There is a fat-containing umbilical hernia. Lymphadenopathy: None. Pelvic viscera: The bladder is distended and the wall appears thickened. The uterus is surgically absent. No adnexal lesion is seen. Skeletal structures: The skeletal structures are osteopenic. There is mild lumbosacral spondylosis and scoliosis. Sclerotic change is seen in the sacroiliac joints. No lytic or blastic lesions are seen. IMPRESSION: 1. The bladder is distended and appears mildly thick-walled. Correlate with cli nical findings and urinalysis. 2. Hepatomegaly. 3. Mild colonic diverticulosis without CT evidence of acute diverticulitis. 4. Additional findings as above. ACT 112: Negative or not required by law. Electronically signed by: Ben Hdez M.D. 03/16/2023 1:49 PM Discharge Plan Visit Data Chief Complaint: Flu Like Symptoms Stated Complaint: FEVER, VOMITING, DIARRHEA ED Provider: Cesar Rodas Discharge Problem: Right lower lobe pneumonia, Nausea vomiting and diarrhea, COPD (chronic obstructive pulmonary disease), Hypomagnesemia, Mild renal insufficiency, Hypotension Forms Stand Alone Forms: [facility] [employer] Prescriptions Prescriptions: No Action azelastine 137 mcg (0.1 %) aerosol,spray 2 spray INTNAS BID Qty: 30 2RF Rx Instructions: administer into each nostril multivitamin tablet 1 tab PO DAILY omeprazole 40 mg capsule,delayed release(DR/EC) 40 mg PO BID Xiidra 5 % Dropperette 2 drp OPHTHALMIC (EYE) BID Probiotic Acidophilus 1.5 mg (250 million cell) Capsule 1,000 mmu cells PO DAILY latanoprost 0.005 % drops 1 drp ophthalmic (eye) HS cyclosporine 25 mg capsule See Rx Instructions .ROUTE .COMPLEX Rx Instructions: take 2 capsules by mouth every morning and 1 capsule by mouth every evening hydroxychloroquine 200 mg Tablet 200 mg PO BID Referrals Referrals: Shahid Perera MD [Primary Care Provider] -
[2023-03-16] MEDS ORDERED: methylPREDNISolone 125 MG/2 ML VIAL IV STA (10:20)
[2023-03-16] MEDS ORDERED: SODIUM CHLORIDE 0.9% 1000ML 1,000 ML IV ONE ×2 (10:20→12:31)
[2023-03-16] MEDS ORDERED: ACETAMINOPHEN 1,000 MG/100 ML VIAL IV STA (10:20)
[2023-03-16] MEDS ORDERED: FAMOTIDINE 20MG IV PUSH 20 MG/5 ML SYR IV STA (10:22)
[2023-03-16] MEDS ORDERED: ONDANSETRON INJ 2 MG/ML 2 ML VIAL IV STA (10:22)
[2023-03-16] MEDS ORDERED: ALBUT/IPRATROP 3MG/0.5MG NEB 3 ML VIAL NEB STA (10:25)
[2023-03-16 10:59] LABS: Basophils # (auto) 0.03 K/uL (0-0.2); Basophils % (auto) 0.2 %; Hemoglobin 13.2 g/dl (12.0-16.0); Immature Granulocytes # (auto) 0.06 K/uL (0.01-0.20); Immature Granulocytes % (auto) 0.4 %; Lymphocytes # (auto) 0.78 K/uL (1.2-3.4); Lymphocytes % (auto) 5.8 %; Mean Corpuscular Hemoglobin 27.8 pg (25.0-34.0); Mean Corpuscular Hgb Conc 33.8 g/dL (32.0-36.0); Mean Corpuscular Volume 82.1 fL (80.0-100.0); Mean Platelet Volume 11.8 fL (9.4-12.4); Monocytes # (auto) 0.64 K/uL (0.11-0.59); Monocytes % (auto) 4.8 %; Neutrophils # (auto) 11.96 K/uL (1.40-6.50); Neutrophils % (auto) 88.8 %; Platelet Count 238 K/uL (130-400); RDW Coefficient of Variation 13.6 % (11.5-14.5); RDW Standard Deviation 40.6 fL (36.4-46.3); Red Blood Count 4.75 M/uL (4.20-5.40); White Blood Count 13.47 K/ul (4.8-10.8)
[2023-03-16 11:13] LABS: Albumin Globulin Ratio 1.6 (0.9-2); Albumin Level 4.5 gm/dl (3.4-5.0); BUN Creatinine Ratio 11.6 (10-20); Bilirubin,Total 0.8 mg/dl (0.2-1.0); Calcium 8.9 mg/dl (8.6-10.3); Creatinine Clr Calc Pharmacy 46.7 ml/min; Est GFR (African American) 57.9 ml/min; Globulin 2.9 gm/dl (2.5-4.0); Magnesium 1.6 mg/dl (1.7-2.4); Potassium 4.1 mmol/L (3.5-5.1); Total Protein 7.4 gm/dl (6.0-8.3)
[2023-03-16 11:16] LABS: Troponin I High Sensitivity 6.2 pg/ml (0-14)
--- NOTE | 2023-03-16 11:23 | XRay Report ---
XR chest 1V portable CLINICAL HISTORY: cough, fever TECHNIQUE: Single frontal radiograph of the chest was obtained. Comparison: None available at the time of this dictation. FINDINGS: No lines and tubes are seen. The cardiomediastinal silhouette is normal. The lungs are clear. No evid ence of pleural effusion or pneumothorax. IMPRESSION: No acute abnormalities and in particular no radiographic evidence of pneumonia. ACT 112: Negative or not required by law. Electronically signed by: Trevor Mazariegos M.D. 03/16/2023 11:22 AM
[2023-03-16] MEDS ORDERED: MAGNESIUM SULFATE / D5W 1 GM/100 ML BAG IV STA (12:41)
[2023-03-16 12:54] LABS: Adenovirus PCR Not Detected (NotDetected); Bordetella parapertussis PCR Not Detected (NotDetected); Bordetella pertussis PCR Not Detected (NotDetected); Chlamydia pneumoniae PCR Not Detected (NotDetected); Coronavirus 229E PCR Not Detected (NotDetected); Coronavirus CoV-2 (COVID19)PCR Not Detected (NotDetected); Coronavirus HKU1 PCR Not Detected (NotDetected); Coronavirus NL63 PCR Not Detected (NotDetected); Coronavirus OC43PCR Not Detected (NotDetected); Human Metapneumovirus PCR Not Detected (NotDetected); Influenza A PCR Not Detected (NotDetected); Influenza B PCR Not Detected (NotDetected); Mycoplasma pneumoniae PCR Not Detected (NotDetected); Parainfluenza Virus 1 PCR Not Detected (NotDetected); Parainfluenza Virus 2 PCR Not Detected (NotDetected); Parainfluenza Virus 3 PCR Not Detected (NotDetected); Parainfluenza Virus 4 PCR Not Detected (NotDetected); Respiratory Syncytial VirusPCR Not Detected (NotDetected); Rhinovirus/Enterovirus PCR Not Detected (NotDetected)
[2023-03-16] MEDS ORDERED: OPTIRAY 320 125ml IV ONE (13:26)
--- NOTE | 2023-03-16 13:51 | CT Scan Report ---
CT SCAN OF THE ABDOMEN AND PELVIS WITH IV CONTRAST CLINICAL HISTORY: Fever. Nausea and vomiting. Diarrhea. COMPARISON STUDY: No priors. TECHNIQUE: Following the IV administration of 120 cc of Optiray 320, CT scan of the abdomen and pelv is is performed from the lung bases to the proximal femora. Images are reviewed in the axial, sagitta l, and coronal planes. IV contrast was administered without complication. A dose lowering technique w as utilized adhering to the principles of ALARA. FINDINGS: Lung bases: The heart is normal in size and without pericardial effusion. There is bibasilar scarring /atelectasis. There is mild bibasilar bronchiectasis. Air-trapping is seen in the lower lobes. No air space consolidation or pleural effusion is identified. There is a small hiatal hernia. Liver: The contrast-enhanced liver is enlarged, measuring 20.2 cm in length. The liver is otherwise n ormal in contour and attenuation. There is no intrahepatic biliary ductal dilatation. The hepatic vei ns and portal veins are patent. Gallbladder: Unremarkable. Spleen: Normal in size and attenuation. Pancreas: Unremarkable. Adrenal glands: Unremarkable. Kidneys: The contrast enhanced kidneys are normal in size and without hydronephrosis. The kidneys enh ance symmetrically. Abdominal vasculature: The abdominal aorta is normal in course and caliber. Bowel: There is mild colonic diverticulosis without CT evidence of acute diverticulitis. No bowel obs truction is seen. Some mucosal fat deposition throughout the colon is nonspecific and has been descri bed in the setting of chronic inflammation. The appendix is well-visualized and normal. Peritoneum: There is no intraperitoneal free air or abdominal ascites. There is a fat-containing umbi lical hernia. Lymphadenopathy: None. Pelvic viscera: The bladder is distended and the wall appears thickened. The uterus is surgically abs ent. No adnexal lesion is seen. Skeletal structures: The skeletal structures are osteopenic. There is mild lumbosacral spondylosis an d scoliosis. Sclerotic change is seen in the sacroiliac joints. No lytic or blastic lesions are seen. IMPRESSION: 1. The bladder is distended and appears mildly thick-walled. Correlate with clinical findings and uri nalysis. 2. Hepatomegaly. 3. Mild colonic diverticulosis without CT evidence of acute diverticulitis. 4. Additional findings as above. ACT 112: Negative or not required by law. Electronically signed by: Ben Hdez M.D. 03/16/2023 1:49 PM
--- NOTE | 2023-03-16 14:26 | Electrocardiogram Report ---
Test Reason : Blood Pressure : / mmHG Vent. Rate : 101 BPM Atrial Rate : 101 BPM P-R Int : 122 ms QRS Dur : 124 ms QT Int : 366 ms P-R-T Axes : 049 -05 027 degrees QTc Int : 474 ms Sinus tachycardia Right bundle branch block Abnormal ECG When compared with ECG of 22-JUN-2018 16:28, T wave inversion now evident in Anterior leads Confirmed by Colby Sexton ([id number]) on 03/16/2023 2:26:51 PM Referred By: REFERRED SELF Confirmed By:Ernesto Sexton
[2023-03-16] MEDS ORDERED: cefTRIAXone SODIUM 2,000 MG/70 ML BAG IV STA (15:11)
--- NOTE | 2023-03-16 15:23 | CT Scan Report ---
CHEST CTA for PULMONARY ARTERIES CT DOSE: 2078.36 mGy.cm HISTORY: chest pain, sob, hypotensive, r/o PE TECHNIQUE: Multiaxial CT images of the chest were performed following the intravenous administration of contrast to evaluate the pulmonary arteries. 3D/Maximal intensity projection images were also obta ined. Sagittal and coronal reformations were also reviewed. A dose lowering technique was utilized a dhering to the principles of ALARA. COMPARISON STUDY: Chest CT 12/05/2018. FINDINGS: There is a 1.1 cm right thyroid nodule. This does not meet CT criteria for follow-up. Suzette l caliber thoracic aorta with no evidence for a dissection. No filling defects within the pulmonary a rteries to suggest a pulmonary embolus. Normal esophagus. Limited views of the upper abdomen demonstr ate a normal liver, spleen, and adrenal glands. No mediastinal or hilar lymphadenopathy. The heart is normal in size. No pleural or pericardial effusions. No acute fractures identified in the chest. No pneumothorax. The central airways are patent. Linear densities within the right middle lobe and lingu la favor subsegmental atelectasis are scarring. There are small peripheral densities within the base of the right lower lobe. These are nonspecific but could represent a mild pneumonitis. There is a mos aic attenuation seen throughout the lungs. This favors air trapping. This could be due to small airwa ys or small vessel disease. An atypical pneumonitis could also have a similar appearance. A 4 mm subp leural nodule within the left lower lobe on image 68. IMPRESSION: 1. No evidence for a pulmonary embolus. 2. There are small peripheral densities within the base of the right lower lobe. These are nonspecifi c but could represent a mild pneumonitis. 3. There is a mosaic attenuation seen throughout the lungs. This favors air trapping. This could be d ue to small airways or small vessel disease. An atypical pneumonitis could also have a similar appear ance. 4. A 4 mm subpleural nodule within the left lower lobe. Please refer to below summary of Fleischner criteria recommendations for follow-up of incidental CT n odules (Sophie Michel, Guidelines for management of small pulmonary nodules detected on CT scans: A sta tement from the Fleischner Society, Radiology 237: [phone].) SOLID NODULES Solitary nodule size: <6 mm * Low risk patients: no follow-up needed * high risk patients: optional CT at 12 months Solitary nodule size: 6-8 mm * Low risk patients: follow-up at 6-12 months, then consider further follow-up at 18-24 months * high risk patients: initial follow-up CT at 6-12 months and then at 18-24 months if no change Solitary nodule size: >8 mm * either low or high risk patients - consider follow-up CT at 3 months, and/or CT-PET, and/or biopsy Multiple nodules size: <6 mm * Low risk patients: no routine follow-up * high risk patients: optional CT at 12 months Multiple nodules size: 6-8 mm * Low risk patients: follow-up at 3-6 months, then consider further follow-up at 18-24 months * high risk patients: follow-up at 3-6 months, then at 18-24 months if no change Multiple nodules size: >8 mm * Low risk patients: follow-up at 3-6 months, then consider further follow-up at 18-24 months * high risk patients: follow-up at 3-6 months, then at 18-24 months if no change Note: newly detected indeterminate nodule in persons 35 years of age or older. * Low risk patients: minimal or absent history of smoking and/or other known risk factors * high risk patients: history of smoking or of other known risk factors (e.g. first degree relative with lung cancer, or exposure to asbestos, radon, uranium) * if a nodule up to 8 mm is partly solid or is ground glass further follow-up is required after 24 m onths to exclude possible slow growing adenocarcinoma (GEORGE) SUBSOLID NODULES Solitary pure ground-glass nodule * nodule size <6 mm - no CT follow-up required * nodule size >=6 mm - follow-up CT at 6-12 months, then every 2 years until 5 years Solitary part-solid nodule * nodule size <6 mm - no CT follow-up required * nodule size >=6 mm - follow-up CT at 3-6 months. If unchanged, and solid component remains <6 mm, then annual follow-up for 5 years Multiple subsolid nodules * nodule size <6 mm - follow-up CT at 3-6 months, consider further follow-up at 2 and 4 years if sta ble * nodule size >=6 mm - follow-up CT at 3-6 months, subsequent management based on the most suspiciou s nodule(s) ACT 112: Negative or not required by law. Electronically signed by: Tay Vidales M.D. 03/16/2023 3:21 PM
[2023-03-16] MEDS ORDERED: DOXYCYCLINE HYCLATE 100 MG in DEXTROSE 5% 100 ML IV STA (15:59)
--- NOTE | 2023-03-16 16:53 | History & Physical Report ---
Date of Service March 16, 2023 Assessment & Plan (1) Right lower lobe pneumonia: Plan: No sepsis with immunosuppressed medication Cough for the last few days Fever with nausea,vomiting,diarrhea since yesterday evening CTA showed right basilar pneumonitis/pneumonia Has been started on intravenous ceftriaxone and doxycycline to cover atypicals Blood cultures have been sent Clinically feeling better-we will continue current medications (2) Nausea vomiting and diarrhea: Plan: With acute kidney failure-likely secondary to dehydration Likely viral gastroenteritis Could be secondary to atypical pneumonia Minimally dehydrated We will give cautious amount of intravenous fluid Monitor PRP (3) COPD (chronic obstructive pulmonary disease): Plan: Has been complaining of cough for the last 1 to 2 months May have lung fibrosis Has had PFT as an out patient Confirmed to have severe COPD without any significant improvement with bron chodilators She is not a smoker Has been taking inhalers and that is helping We will continue (4) GERD (gastroesophageal reflux disease): Plan: Continue PPI (5) Lichen planus: Plan: History of lichen planus involving the hands, mouth and esophagus with a stricture She has been on cyclosporine and Plaquenil and her condition is much improved We will continue current medications for that Other medical conditions as noted in the chart remain stable Chronic mucoid otitis media of right ear Nonallergic rhinitis Dysfunction of the eustachian tubes Chronic sinusitis DVT prophylaxis Lovenox subcu CODE STATUS Full History of Present Illness Chief Complaint: Fever, nausea,vomiting and diarrhea since last evening Primary Care Provider: Shahid Perera MD She is a 57 years old female with significant past medical history of lichen planus on cyclosporine and hydroxychloroquine, psoriasis, nonallergic rhinitis, GERD, and recently diagnosed COPD apparently has been complaining of minimal diarrhea on Tuesday which is resolving but has had fever with chills, nausea and vomiting associated with diarrhea worse since last evening. She did have cough with some productive phlegm as well but denies any wheezing and/or shortness of breath. She denies any significant abdominal pain, any swelling of the legs, any chest pain and/or palpitation. She was noted to have right lower lobe pneumonitis/pneumonia, started with intravenous ceftriaxone and doxycycline and is admitted to medical floor for continuation of care. Allergies Allergy/AdvReac Type Severity Reaction Status Date / Time Penicillins Allergy Unknown RASH & Verified 03/16/23 11:31 BLACKED OUT Home Medications Medication Instructions Recorded Confirmed Type lifitegrast 5 % eye drops in a 2 drp ophthalmic (eye) BID 06/29/18 03/16/23 History dropperette (Xiidra) multivitamin 1 tab PO DAILY 07/12/19 03/16/23 History Lactobacillus acidophilus 1.5 mg 1,000 mmu cells PO DAILY 09/03/19 03/16/23 History (250 million cell) capsule (Probiotic Acidophilus) omeprazole 40 mg capsule,delayed 40 mg PO BID 02/05/20 03/16/23 History release azelastine 137 mcg (0.1 %) nasal 2 spray intranasal BID #30 mL 02/06/20 03/16/23 Rx spray aerosol cyclosporine 25 mg capsule See Rx Instructions .Route .COMPLEX 03/16/23 03/16/23 History hydroxychloroquine 200 mg tablet 200 mg PO BID 03/16/23 03/16/23 History latanoprost 0.005 % eye drops 1 drp ophthalmic (eye) HS 03/16/23 03/16/23 History Past Med/Surg History Medical History (Updated 03/16/23 @ 16:50 by Renea Liu MD) Chronic back pain Chronic serous otitis media of right ear Chronic sinusitis Esophageal stricture x2 Hyperlipidemia NO MEDS Lesion of ear canal Lichen planus Mixed conductive and sensorineural hearing loss of both ears Mixed hearing loss of right ear Oral thrush re-occurring r/t antibiotics and steroids Otitis externa of left ear Otorrhea, right ear Peptic ulcer disease as a child Postnasal drip Psoriasis Scoliosis Sensorineural hearing loss of both ears Surgical History H/O vaginal hysterectomy History of colonoscopy History of dilatation and curettage x3 History of myringotomy BMT History of tooth extraction WISDOM TEETH S/P dilatation of esophageal stricture S/P tube myringotomy right ear T-Tube Family History Grandmother Family history of diabetes mellitus Sinusitis Family/Other Hypertension grandparent Aunt Cancer Sister Cancer Mother Allergies Sinusitis Cancer Other No family history of adverse response to anesthesia No family history of bleeding disorder Social History Smoking Status: Never smoker Second Hand Exposure: Yes (as a child); Do You Dip or Chew Tobacco: No; Hx Alcohol Use: No Hx Substance Use: No Preferred Language: Romansh Communication Ability: Effective Ug Designer Required: No Beliefs That Will Affect Care: None Current Living Situation: Spouse current occupational status: employed current occupation: computer programmer chief Feels Safe at Home: Yes Assistive Devices: Glasses Review of Systems Review of Systems: All systems reviewed and are unremarkable as mentioned in H&P Physical Exam Physical Exam: Lying in bed comfortably and mentioned that she has been feeling better already Constitutional: well developed, well nourished, + ill appearing and + obese Eyes: PERRL, conjunctivae normal, anicteric sclerae ENMT: external ear and nose normal, oropharynx normal Neck: trachea midline, no thyromegaly Respiratory: no respiratory distress Auscultation: + diminished lung sounds and + crackles (Fine crackles bibasally and coarse crackles in the right base) Cardiovascular: Rate/Rhythm: regular rate and regular rhythm; not tachycardic Heart Sounds: normal S1 and normal S2; no murmur Extremities: no edema Gastrointestinal (Abdomen): Inspection/Auscultation: normal bowel sounds; abdomen not distended Percussion/Palpation: abdomen soft; abdomen nontender Musculoskeletal: No acute arthritis involving any joint Skin: No rashes and/or lichen planus Neurologic: normal touch/pain/proprioception and moves all extremities; no focal motor deficits Psychiatric: A+Ox3, euthymic affect Lymphatic: no cervical or axillary lymphadenopathy Results & Data Results & Data Vital Signs (Past 12 Hours) Vital Signs Temp Pulse Pulse Resp BP BP Pulse Ox 03/16/23 14:25 77 101/57 L 95 03/16/23 13:40 37 C 82 21 99/58 L 96 03/16/23 12:43 37.6 C H 03/16/23 12:37 86 18 88/52 L 93 03/16/23 12:18 91 H 03/16/23 11:30 102 H 21 90/65 L 94 03/16/23 11:30 86 L 03/16/23 11:13 91 03/16/23 11:10 106 H 18 88/62 L 89 L 03/16/23 10:43 108 H 18 93 03/16/23 09:57 37.6 C H 108 H 18 121/68 93 O2 Del Method O2 Flow Rate 03/16/23 14:25 Nasal Cannula 03/16/23 13:40 03/16/23 12:43 03/16/23 12:37 Nasal Cannula 2 03/16/23 12:18 03/16/23 11:30 Nasal Cannula 2 03/16/23 11:30 Nasal Cannula 2 03/16/23 11:13 Room Air 03/16/23 11:10 Room Air 03/16/23 10:43 Room Air 03/16/23 09:57 Room Air Laboratory Results Short CBC 03/16/23 Range/Units 10:35 WBC 13.47 H (4.8-10.8) K/ul Hgb 13.2 (12.0-16.0) g/dl Hct 39.0 (37.0-47.0) % Plt Count 238 (130-400) K/uL BMP 03/16/23 10:35 Sodium 137 Potassium 4.1 Chloride 105 Carbon Dioxide 24 BUN 14 Creatinine 1.21 H Glucose 97 Calcium 8.9 Liver Function 03/16/23 Range/Units 10:35 Total Bilirubin 0.8 (0.2-1.0) mg/dl AST 22 (13-39) U/L ALT 20 (7-52) U/L Alkaline Phosphatase 77 (34-104) U/L Albumin 4.5 (3.4-5.0) gm/dl Diagnostic Findings Laboratory Results WBC 13.47 K/ul (4.8-10.8) H 03/16/23 10:35 RBC 4.75 M/uL (4.20-5.40) 03/16/23 10:35 Hgb 13.2 g/dl (12.0-16.0) 03/16/23 10:35 Hct 39.0 % (37.0-47.0) 03/16/23 10:35 MCV 82.1 fL (80.0-100.0) 03/16/23 10:35 MCH 27.8 pg (25.0-34.0) 03/16/23 10:35 MCHC 33.8 g/dL (32.0-36.0) 03/16/23 10:35 RDW Std Deviation 40.6 fL (36.4-46.3) 03/16/23 10:35 RDW Coeff of Tresa 13.6 % (11.5-14.5) 03/16/23 10:35 Plt Count 238 K/uL (130-400) 03/16/23 10:35 MPV 11.8 fL (9.4-12.4) 03/16/23 10:35 Immature Gran % (Auto) 0.4 % 03/16/23 10:35 Neut % (Auto) 88.8 % 03/16/23 10:35 Lymph % (Auto) 5.8 % 03/16/23 10:35 [place] % (Auto) 4.8 % 03/16/23 10:35 Eos % (Auto) 0.0 % 03/16/23 10:35 Baso % (Auto) 0.2 % 03/16/23 10:35 Neut # (Auto) 11.96 K/uL (1.40-6.50) H 03/16/23 10:35 Lymph # (Auto) 0.78 K/uL (1.2-3.4) L 03/16/23 10:35 [place] # (Auto) 0.64 K/uL (0.11-0.59) H 03/16/23 10:35 Eos # (Auto) 0.00 K/uL (0-0.50) 03/16/23 10:35 Baso # (Auto) 0.03 K/uL (0-0.2) 03/16/23 10:35 Immature Gran # (Auto) 0.06 K/uL (0.01-0.20) 03/16/23 10:35 Sodium 137 mmol/L (136-145) 03/16/23 10:35 Potassium 4.1 mmol/L (3.5-5.1) 03/16/23 10:35 Chloride 105 mmol/L (98-107) 03/16/23 10:35 Carbon Dioxide 24 mmol/L (21-32) 03/16/23 10:35 Anion Gap 8 (3-11) 03/16/23 10:35 BUN 14 mg/dl (6-23) 03/16/23 10:35 Creatinine 1.21 mg/dl (0.6-1.2) H 03/16/23 10:35 Est Cr Clr Drug Dosing 46.7 ml/min 03/16/23 10:35 Est GFR ( Amer) 57.9 ml/min 03/16/23 10:35 Est GFR (Non-Af Amer) 50.0 ml/min 03/16/23 10:35 BUN/Creatinine Ratio 11.6 (10-20) 03/16/23 10:35 Glucose 97 mg/dl (70-99(Fasting)) 03/16/23 10:35 Lactate 0.7 mmol/L (0.4-2.0) 03/16/23 12:53 Calcium 8.9 mg/dl (8.6-10.3) 03/16/23 10:35 Magnesium 1.6 mg/dl (1.7-2.4) L 03/16/23 10:35 Total Bilirubin 0.8 mg/dl (0.2-1.0) 03/16/23 10:35 AST 22 U/L (13-39) 03/16/23 10:35 ALT 20 U/L (7-52) 03/16/23 10:35 Alkaline Phosphatase 77 U/L (34-104) 03/16/23 10:35 Troponin I High Sens 6.2 pg/ml (0-14) 03/16/23 10:35 Total Protein 7.4 gm/dl (6.0-8.3) 03/16/23 10:35 Albumin 4.5 gm/dl (3.4-5.0) 03/16/23 10:35 Globulin 2.9 gm/dl (2.5-4.0) 03/16/23 10:35 Albumin/Globulin Ratio 1.6 (0.9-2) 03/16/23 10:35 Lipase 25 U/L (11-82) 03/16/23 10:35 Procalcitonin 0.13 ng/ml (0-0.5) 03/16/23 12:50 Adenovirus (PCR) Not Detected (NotDetected) 03/16/23 10:45 B. pertussis DNA (PCR) Not Detected (NotDetected) 03/16/23 10:45 B.parapertussis DNA PCR Not Detected (NotDetected) 03/16/23 10:45 C. pneumoniae DNA (PCR) Not Detected (NotDetected) 03/16/23 10:45 Coronavirus OC43 (PCR) Not Detected (NotDetected) 03/16/23 10:45 Coronavirus HKU1 (PCR) Not Detected (NotDetected) 03/16/23 10:45 Coronavirus 229E (PCR) Not Detected (NotDetected) 03/16/23 10:45 SARS-CoV-2 (PCR) Not Detected (NotDetected) 03/16/23 10:45 Coronavirus NL63 (PCR) Not Detected (NotDetected) 03/16/23 10:45 Human Metapneumovir PCR Not Detected (NotDetected) 03/16/23 10:45 Influenza Type A (PCR) Not Detected (NotDetected) 03/16/23 10:45 Influenza Type B (PCR) Not Detected (NotDetected) 03/16/23 10:45 M. pneumoniae (PCR) Not Detected (NotDetected) 03/16/23 10:45 Parainfluenza 1 (PCR) Not Detected (NotDetected) 03/16/23 10:45 Parainfluenza 2 (PCR) Not Detected (NotDetected) 03/16/23 10:45 Parainfluenza 3 (PCR) Not Detected (NotDetected) 03/16/23 10:45 Parainfluenza 4 (PCR) Not Detected (NotDetected) 03/16/23 10:45 RSV (PCR) Not Detected (NotDetected) 03/16/23 10:45 Entero/Rhino (PCR) Not Detected (NotDetected) 03/16/23 10:45 Impressions Chest X-Ray 03/16/23 10:21 XR chest 1V portable CLINICAL HISTORY: cough, fever TECHNIQUE: Single frontal radiograph of the chest was obtained. Comparison: None available at the time of this dictation. FINDINGS: No lines and tubes are seen. The cardiomediastinal silhouette is normal. The lungs are clear. No evidence of pleural effusion or pneumothorax. IMPRESSION: No acute abnormalities and in particular no radiographic evidence of pneumonia. ACT 112: Negative or not required by law. Electronically signed by: Trevor Mazariegos M.D. 03/16/2023 11:22 AM Chest CTA 03/16/23 12:31 CHEST CTA for PULMONARY ARTERIES CT DOSE: 2078.36 mGy.cm HISTORY: chest pain, sob, hypotensive, r/o PE TECHNIQUE: Multiaxial CT images of the chest were performed following the intravenous administration of contrast to evaluate the pulmonary arteries. 3D/Maximal intensity projection images were also obtained. Sagittal and coronal reformations were also reviewed. A dose lowering technique was utilized adhering to the principles of ALARA. COMPARISON STUDY: Chest CT 12/05/2018. FINDINGS: There is a 1.1 cm right thyroid nodule. This does not meet CT criteria for follow-up. Normal caliber thoracic aorta with no evidence for a dissection. No filling defects within the pulmonary arteries to suggest a pulmonary embolus. Normal esophagus. Limited views of the upper abdomen demonstrate a normal liver, spleen, and adrenal glands. No mediastinal or hilar lymphadenopathy. The heart is normal in size. No pleural or pericardial effusions. No acute fractures identified in the chest. No pneumothorax. The central airways are patent. Linear densities within the right middle lobe and lingula favor subsegmental atelect asis are scarring. There are small peripheral densities within the base of the right lower lobe. These are nonspecific but could represent a mild pneumonitis. There is a mosaic attenuation seen throughout the lungs. This favors air trapping. This could be due to small airways or small vessel disease. An atypical pneumonitis could also have a similar appearance. A 4 mm subpleural nodule within the left lower lobe on image 68. IMPRESSION: 1. No evidence for a pulmonary embolus. 2. There are small peripheral densities within the base of the right lower lobe. These are nonspecific but could represent a mild pneumonitis. 3. There is a mosaic attenuation seen throughout the lungs. This favors air trapping. This could be due to small airways or small vessel disease. An atypical pneumonitis could also have a similar appearance. 4. A 4 mm subpleural nodule within the left lower lobe. Please refer to below summary of Fleischner criteria recommendations for follow- up of incidental CT nodules (Sophie Michel, Guidelines for management of small pulmonary nodules detected on CT scans: A statement from the Fleischner Society, Radiology 237: [phone].) SOLID NODULES Solitary nodule size: <6 mm * Low risk patients: no follow-up needed * high risk patients: optional CT at 12 months Solitary nodule size: 6-8 mm * Low risk patients: follow-up at 6-12 months, then consider further follow-up at 18-24 months * high risk patients: initial follow-up CT at 6-12 months and then at 18-24 months if no change Solitary nodule size: >8 mm * either low or high risk patients - consider follow-up CT at 3 months, and/or CT-PET, and/or biopsy Multiple nodules size: <6 mm * Low risk patients: no routine follow-up * high risk patients: optional CT at 12 months Multiple nodules size: 6-8 mm * Low risk patients: follow-up at 3-6 months, then consider further follow-up at 18-24 months * high risk patients: follow-up at 3-6 months, then at 18-24 months if no change Multiple nodules size: >8 mm * Low risk patients: follow-up at 3-6 months, then consider further follow-up at 18-24 months * high risk patients: follow-up at 3-6 months, then at 18-24 months if no change Note: newly detected indeterminate nodule in persons 35 years of age or older. * Low risk patients: minimal or absent history of smoking and/or other known risk factors * high risk patients: history of smoking or of other known risk factors (e.g. first degree relative with lung cancer, or exposure to asbestos, radon, uranium) * if a nodule up to 8 mm is partly solid or is ground glass further follow-up is required after 24 months to exclude possible slow growing adenocarcinoma (GEORGE) SUBSOLID NODULES Solitary pure ground-glass nodule * nodule size <6 mm - no CT follow-up required * nodule size >=6 mm - follow-up CT at 6-12 months, then every 2 years until 5 years Solitary part-solid nodule * nodule size <6 mm - no CT follow-up required * nodule size >=6 mm - follow-up CT at 3-6 months. If unchanged, and solid component remains <6 mm, then annual follow-up for 5 years Multiple subsolid nodules * nodule size <6 mm - follow-up CT at 3-6 months, consider further follow-up at 2 and 4 years if stable * nodule size >=6 mm - follow-up CT at 3-6 months, subsequent management based on the most suspicious nodule(s) ACT 112: Negative or not required by law. Electronically signed by: Tay Vidales M.D. 03/16/2023 3:21 PM Abdomen/Pelvis CT 03/16/23 12:40 CT SCAN OF THE ABDOMEN AND PELVIS WITH IV CONTRAST CLINICAL HISTORY: Fever. Nausea and vomiting. Diarrhea. COMPARISON STUDY: No priors. TECHNIQUE: Following the IV administration of 120 cc of Optiray 320, CT scan of the abdomen and pelvis is performed from the lung bases to the proximal femora. Images are reviewed in the axial, sagittal, and coronal planes. IV contrast was administered without complication. A dose lowering technique was utilized adhering to the principles of ALARA. FINDINGS: Lung bases: The heart is normal in size and without pericardial effusion. There is bibasilar scarring/atelectasis. There is mild bibasilar bronchiectasis. Air- trapping is seen in the lower lobes. No airspace consolidation or pleural effusion is identified. There is a small hiatal hernia. Liver: The contrast-enhanced liver is enlarged, measuring 20.2 cm in length. The liver is otherwise normal in contour and attenuation. There is no intrahepatic biliary ductal dilatation. The hepatic veins and portal veins are patent. Gallbladder: Unremarkable. Spleen: Normal in size and attenuation. Pancreas: Unremarkable. Adrenal glands: Unremarkable. Kidneys: The contrast enhanced kidneys are normal in size and without hydronephr osis. The kidneys enhance symmetrically. Abdominal vasculature: The abdominal aorta is normal in course and caliber. Bowel: There is mild colonic diverticulosis without CT evidence of acute divert iculitis. No bowel obstruction is seen. Some mucosal fat deposition throughout the colon is nonspecific and has been described in the setting of chronic inflammation. The appendix is well-visualized and normal. Peritoneum: There is no intraperitoneal free air or abdominal ascites. There is a fat-containing umbilical hernia. Lymphadenopathy: None. Pelvic viscera: The bladder is distended and the wall appears thickened. The uterus is surgically absent. No adnexal lesion is seen. Skeletal structures: The skeletal structures are osteopenic. There is mild lumbosacral spondylosis and scoliosis. Sclerotic change is seen in the sacroiliac joints. No lytic or blastic lesions are seen. IMPRESSION: 1. The bladder is distended and appears mildly thick-walled. Correlate with clinical findings and urinalysis. 2. Hepatomegaly. 3. Mild colonic diverticulosis without CT evidence of acute diverticulitis. 4. Additional findings as above. ACT 112: Negative or not required by law. Electronically signed by: Ben Hdez M.D. 03/16/2023 1:49 PM
[2023-03-16 17:25] LABS: Appearance Urine Clear (Clear); Bacteria Urine Automated Negative (Negative); Bilirubin Urine Negative (Negative); Blood Urine Trace (Negative); Color Urine Yellow; Glucose Urine UA Negative (Negative); Ketones Urine Negative (Negative); Leukocyte Esterase Urine Negative (Negative); Nitrite Urine Negative (Negative); Protein Urine 1+ (Negative); Urobilinogen Urine Negative (Negative); pH Urine 6.5 (4.5-7.5)
[2023-03-16] MEDS: ENOXAPARIN INJ 40 MG/0.4 ML SYR SQ SCH (18:33)
[2023-03-16] MEDS: SODIUM CHLORIDE 0.9% 1000ML 1,000 ML IV SCH (19:54)
[2023-03-16] MEDS ORDERED: cycloSPORINE (SANDIMMUNE) 25 MG CAP PO SCH (20:45)
[2023-03-16] MEDS: AZELASTINE HCL 0.1% NASAL 200 SPRAYS/27,400 MCG BTL NAE SCH (21:54)
[2023-03-16] MEDS: LATANOPROST 0.005% OP SOLN 2.5 ML BTL OP SCH (21:54)
[2023-03-16] MEDS: HYDROXYCHLOROQUINE SULFATE 200 MG TAB PO SCH (21:57)
[2023-03-16] MEDS: cycloSPORINE (SANDIMMUNE) 25 MG CAP PO SCH (21:57)
[2023-03-16] MEDS: PANTOprazole 40 MG TAB PO SCH (21:58)
[2023-03-16] MEDS: ARTIFICIAL TEARS OP SCH (22:38)
[2023-03-17] MEDS ORDERED: Nursing to Pharmacy Communication SCH (01:30)
[2023-03-17] MEDS: SODIUM CHLORIDE 0.9% 1000ML 1,000 ML IV SCH (01:55)
[2023-03-17] MEDS: ARTIFICIAL TEARS OP SCH ×3 (03:30→08:08)
[2023-03-17 08:04] LABS: Basophils # (auto) 0.02 K/uL (0-0.2); Basophils % (auto) 0.1 %; Hematocrit (blood only) 34.5 % (37.0-47.0); Hemoglobin 11.7 g/dl (12.0-16.0); Immature Granulocytes # (auto) 0.13 K/uL (0.01-0.20); Immature Granulocytes % (auto) 0.9 %; Lymphocytes # (auto) 1.11 K/uL (1.2-3.4); Lymphocytes % (auto) 7.5 %; Mean Corpuscular Hemoglobin 28.5 pg (25.0-34.0); Mean Corpuscular Hgb Conc 33.9 g/dL (32.0-36.0); Mean Corpuscular Volume 83.9 fL (80.0-100.0); Mean Platelet Volume 12.6 fL (9.4-12.4); Monocytes # (auto) 0.57 K/uL (0.11-0.59); Monocytes % (auto) 3.8 %; Neutrophils # (auto) 13.01 K/uL (1.40-6.50); Neutrophils % (auto) 87.7 %; Platelet Count 200 K/uL (130-400); RDW Coefficient of Variation 13.9 % (11.5-14.5); RDW Standard Deviation 42.7 fL (36.4-46.3); Red Blood Count 4.11 M/uL (4.20-5.40); White Blood Count 14.84 K/ul (4.8-10.8)
[2023-03-17] MEDS: ACETAMINOPHEN 325 MG TAB PO PRN ×2 (08:08→23:35)
[2023-03-17] MEDS: cycloSPORINE (SANDIMMUNE) 25 MG CAP PO SCH ×2 (08:09→20:21)
[2023-03-17] MEDS: MULTIVITAMIN TAB PO SCH (08:09)
[2023-03-17] MEDS: ADVANCED PROBIOTIC 1250 MG CAPSULE PO SCH (08:09)
[2023-03-17 08:10] LABS: BUN Creatinine Ratio 19.2 (10-20); Calcium 8.2 mg/dl (8.6-10.3); Creatinine Clr Calc Pharmacy 57.6 ml/min; Est GFR (African American) 73.8 ml/min; Est GFR (Non-African American) 63.7 ml/min; Magnesium 2.2 mg/dl (1.7-2.4); Phosphorus 3.8 mg/dl (2.5-4.9); Potassium 4.2 mmol/L (3.5-5.1)
[2023-03-17] MEDS: ENOXAPARIN INJ 40 MG/0.4 ML SYR SQ SCH (08:10)
[2023-03-17] MEDS ORDERED: ARTIFICIAL TEARS OP PRN (08:15)
[2023-03-17] MEDS: HYDROXYCHLOROQUINE SULFATE 200 MG TAB PO SCH ×2 (08:56→20:21)
[2023-03-17] MEDS: PANTOprazole 40 MG TAB PO SCH ×2 (08:56→20:20)
[2023-03-17] MEDS: AZELASTINE HCL 0.1% NASAL 200 SPRAYS/27,400 MCG BTL NAE SCH ×2 (08:56→20:21)
[2023-03-17 10:49] LABS: Adenovirus F 40/41 PCR Not Detected (NotDetected); Astrovirus PCR Not Detected (NotDetected); Cryptosporidium PCR Not Detected (NotDetected); Cyclospora cayetanensis PCR Not Detected (NotDetected); Entamoeba histolytica PCR Not Detected (NotDetected); Enteroaggregative E.coli(EAEC) Not Detected (NotDetected); Enteropathogenic E.coli (EPEC) Not Detected (NotDetected); Enterotoxigenic E.coli (ETEC) Not Detected (NotDetected); Giardia lamblia PCR Not Detected (NotDetected); Norovirus GI/GII PCR Not Detected (NotDetected); Plesiomonas shigelloides PCR Not Detected (NotDetected); Rotavirus A PCR Not Detected (NotDetected); Salmonella PCR Not Detected (NotDetected); Sapovirus PCR Not Detected (NotDetected); Shiga-like Toxin E.coli (STEC) Not Detected (NotDetected); Shigella/Enteroinvasive E.coli Not Detected (NotDetected); Vibrio cholerae PCR Not Detected (NotDetected); Vibrio species PCR Not Detected (NotDetected); Yersinia enterocolitica PCR Not Detected (NotDetected)
[2023-03-17 11:05] LABS: Campylobacter PCR DETECTED (NotDetected)
[2023-03-17] MEDS: AZITHROMYCIN 250 MG TAB PO SCH (12:25)
[2023-03-17 13:24] LABS: A calco-baum cmplx NotReported Not Detected (NotDetected); Bact fragilis Not Reported Not Detected (NotDetected); C auris Not Reported Not Detected (NotDetected); Calbicans Not Reported Not Detected (NotDetected); Candida glabrata Not Reported Not Detected (NotDetected); Candida krusei Not Reported Not Detected (NotDetected); Cneoformans/gatti Not Reported Not Detected (NotDetected); Cparapsilosis Not Reported Not Detected (NotDetected); Ctropicalis Not Reported Not Detected (NotDetected); E cloacae compx Not Reported Not Detected (NotDetected); Efaecalis Not Reported Not Detected (NotDetected); Efaecium Not Reported Not Detected (NotDetected); Enterobacterales Not Reported Not Detected (NotDetected); Escherichia coli Not Reported Not Detected (NotDetected); H influenzae Not Reported Not Detected (NotDetected); K aerogenes Not Reported Not Detected (NotDetected); Koxytoca Not Reported Not Detected (NotDetected); Kpneumoniae grp Not Reported Not Detected (NotDetected); Lmonocyt Not Reported Not Detected (NotDetected); N meningitidis Not Reported Not Detected (NotDetected); P aeruginosa Not Reported Not Detected (NotDetected); Proteus spp Not Reported Not Detected (NotDetected); Salmonella spp Not Reported Not Detected (NotDetected); Smarcescens Not Reported Not Detected (NotDetected); Staph lugdunensis Not Reported Not Detected (NotDetected); Staph spp. Not Reported DETECTED (NotDetected); Staphaureus Not Reported Not Detected (NotDetected); Staphepi Not Reported DETECTED (NotDetected); Staphylococcus spp. DETECTED (NotDetected); Stenmaltophilia Not Reported Not Detected (NotDetected); Strep agal(GrpB) Not Reported Not Detected (NotDetected); Strep pneum Not Reported Not Detected (NotDetected); Strep pyog (GrpA) Not Reported Not Detected (NotDetected); Strep spp Not Reported Not Detected (NotDetected); mecAC Resistant Gene DETECTED (NotDetected)
[2023-03-17 14:01] LABS: Staphylococcus epidermidis DETECTED (NotDetected)
[2023-03-17] MEDS: cefTRIAXone SODIUM 2,000 MG in DEXTROSE 5% 50 ML IV SCH (14:43)
[2023-03-17] MEDS: LATANOPROST 0.005% OP SOLN 2.5 ML BTL OP SCH (21:19)
--- NOTE | 2023-03-17 21:57 | Hospitalist Progress Note ---
Date of Service March 17, 2023 Assessment & Plan (1) Right lower lobe pneumonia: Plan: No sepsis with immunosuppressed medication CTA showed right basilar pneumonitis/pneumonia on intravenous ceftriaxone and azithromycin- recently positive for a campylobacter infection Blood cultures -one growing gram positive cocci with biofire noting S epidermidis-likely a contaminant Clinically feeling better-continue current medications (2) Nausea vomiting and diarrhea: Plan: With acute kidney failure-likely secondary to dehydration Acutel gastroenteritis- campylobacter positive. started on azithromycin gentle fluids (3) COPD (chronic obstructive pulmonary disease): Plan: May have lung fibrosis Has had PFT as an out patient, Nonsmoker Confirmed to have severe COPD without any significant improvement with bronchodilatorsr Has been taking inhalers and that is helping continue (4) GERD (gastroesophageal reflux disease): Plan: Continue PPI (5) Lichen planus: Plan: History of lichen planus involving the hands, mouth and esophagus with a stricture She has been on cyclosporine and Plaquenil and her condition is much improved Continue Other medical conditions as noted in the chart remain stable Chronic mucoid otitis media of right ear Nonallergic rhinitis Dysfunction of the eustachian tubes Chronic sinusitis DVT prophylaxis Lovenox subcu CODE STATUS Full Admission and Anticipated Discharge Date Admission Date: March 16, 2023 Subjective States that she is feeling better. Diarrhea is better and no abdominal pain. Breathing stable. Concerned that she might have aspirated with her Hx of lichen planus that she was told also affects her esophagus. Review of Systems Review of Systems: All systems reviewed & are unremarkable except as noted in Subjective Physical Exam Physical Exam: General: Alert, oriented. No acute distress Skin: No noted rashes or bruises Psych: Appropriate mood and affect Neuro: No gross deficits HEENT: NC/AT CV: RRR, Normal s1, s2. No murmurs appreciated Resp: Breath sounds clear bilaterally, no increased effort of breathing. Abdomen:Soft, nontender, nondistended. No guarding. No organomegaly appreciated. Extremities: No edema in lower extremities bilaterally. Results & Data Results & Data Vital Signs (Past 12 Hours) Vital Signs Temp Pulse Pulse Resp BP Pulse Ox O2 Del Method 03/17/23 19:52 36.4 C L 75 16 111/67 93 Room Air 03/17/23 16:13 36.5 C 72 16 100/61 92 Room Air 03/17/23 14:01 75 03/17/23 11:19 36.6 C 71 18 90/53 L 94 Nasal Cannula O2 Flow Rate 03/17/23 19:52 03/17/23 16:13 03/17/23 14:01 03/17/23 11:19 1
[2023-03-18] MEDS: ENOXAPARIN INJ 40 MG/0.4 ML SYR SQ SCH (08:10)
[2023-03-18] MEDS: AZITHROMYCIN 250 MG TAB PO SCH (08:11)
[2023-03-18] MEDS: AZELASTINE HCL 0.1% NASAL 200 SPRAYS/27,400 MCG BTL NAE SCH ×2 (08:11→20:23)
[2023-03-18] MEDS: HYDROXYCHLOROQUINE SULFATE 200 MG TAB PO SCH ×2 (08:11→20:24)
[2023-03-18] MEDS: PANTOprazole 40 MG TAB PO SCH ×2 (08:11→20:24)
[2023-03-18] MEDS: ADVANCED PROBIOTIC 1250 MG CAPSULE PO SCH (08:11)
[2023-03-18] MEDS: cycloSPORINE (SANDIMMUNE) 25 MG CAP PO SCH ×2 (08:11→20:24)
[2023-03-18] MEDS: MULTIVITAMIN TAB PO SCH (08:11)
[2023-03-18 12:15] LABS: Basophils # (auto) 0.05 K/uL (0-0.2); Basophils % (auto) 0.6 %; Eosinophils # (auto) 0.12 K/uL (0-0.50); Eosinophils % (auto) 1.4 %; Hematocrit (blood only) 35.1 % (37.0-47.0); Immature Granulocytes # (auto) 0.13 K/uL (0.01-0.20); Immature Granulocytes % (auto) 1.6 %; Lymphocytes # (auto) 2.64 K/uL (1.2-3.4); Lymphocytes % (auto) 31.6 %; Mean Corpuscular Hemoglobin 28.4 pg (25.0-34.0); Mean Corpuscular Hgb Conc 34.2 g/dL (32.0-36.0); Mean Platelet Volume 11.7 fL (9.4-12.4); Monocytes # (auto) 0.85 K/uL (0.11-0.59); Monocytes % (auto) 10.2 %; Neutrophils # (auto) 4.56 K/uL (1.40-6.50); Neutrophils % (auto) 54.6 %; Platelet Count 223 K/uL (130-400); RDW Coefficient of Variation 14.2 % (11.5-14.5); RDW Standard Deviation 42.9 fL (36.4-46.3); Red Blood Count 4.23 M/uL (4.20-5.40); White Blood Count 8.35 K/ul (4.8-10.8)
[2023-03-18 12:26] LABS: BUN Creatinine Ratio 18.7 (10-20); Calcium 8.8 mg/dl (8.6-10.3); Creatinine Clr Calc Pharmacy 53.7 ml/min; Est GFR (African American) 67.2 ml/min; Potassium 4.1 mmol/L (3.5-5.1)
--- NOTE | 2023-03-18 15:35 | Hospitalist Progress Note ---
Date of Service March 18, 2023 Assessment & Plan (1) Right lower lobe pneumonia: Plan: No sepsis with immunosuppressed medication CTA showed right basilar pneumonitis/pneumonia on intravenous ceftriaxone and azithromycin- recently positive for a campylobacter infection Blood cultures -one blood culture growing coag negative staph- likely a contaminant Clinically feeling better-continue current medications (2) Nausea vomiting and diarrhea: Plan: Previously with acute kidney failure-likely secondary to dehydration Acute gastroenteritis- campylobacter positive. started on azithromycin gentle fluids (3) COPD (chronic obstructive pulmonary disease): Plan: May have lung fibrosis Has had PFT as an out patient, Nonsmoker Confirmed to have severe COPD without any significant improvement with bronchodilatorsr Has been taking inhalers and that is helping continue (4) GERD (gastroesophageal reflux disease): Plan: Continue PPI (5) Lichen planus: Plan: History of lichen planus involving the hands, mouth and esophagus with a stricture She has been on cyclosporine and Plaquenil and her condition is much improved Continue Other medical conditions as noted in the chart remain stable Chronic mucoid otitis media of right ear Nonallergic rhinitis Dysfunction of the eustachian tubes Chronic sinusitis DVT prophylaxis Lovenox subcu CODE STATUS Full Admission and Anticipated Discharge Date Admission Date: March 16, 2023 Subjective Pt seen this AM. States she is feeling better. However, she notes that she is still having copious diarrhea. States chronic cough, denies abdominal pain. Review of Systems Review of Systems: All systems reviewed & are unremarkable except as noted in Subjective Physical Exam Physical Exam: General: Alert, oriented. No acute distress Skin: No noted rashes or bruises Psych: Appropriate mood and affect Neuro: No gross deficits HEENT: NC/AT CV: RRR, Normal s1, s2. No murmurs appreciated Resp: Breath sounds clear bilaterally, no increased effort of breathing. Abdomen:Soft, nontender, nondistended. No guarding. No organomegaly appreciated. Extremities: No edema in lower extremities bilaterally. Results & Data Results & Data Vital Signs (Past 12 Hours) Vital Signs Temp Pulse Pulse Resp BP Pulse Ox O2 Del Method 03/18/23 11:06 36.7 C 75 18 93/55 L 91 Room Air 03/18/23 07:21 Room Air 03/18/23 06:00 65 03/18/23 07:35 36.3 C L 70 18 90/55 L 92 Room Air 03/18/23 03:36 36.6 C 73 18 93/54 L 90 Room Air
[2023-03-18] MEDS: cefTRIAXone SODIUM 2,000 MG in DEXTROSE 5% 50 ML IV SCH (15:39)
[2023-03-18] MEDS: SODIUM CHLORIDE 0.9% 1000ML 1,000 ML IV SCH ×2 (15:39→23:46)
[2023-03-18] MEDS: LATANOPROST 0.005% OP SOLN 2.5 ML BTL OP SCH (20:24)
[2023-03-19] MEDS: SODIUM CHLORIDE 0.9% 1000ML 1,000 ML IV SCH (07:24)
[2023-03-19] MEDS: cycloSPORINE (SANDIMMUNE) 25 MG CAP PO SCH (07:27)
[2023-03-19] MEDS: PANTOprazole 40 MG TAB PO SCH (07:27)
[2023-03-19] MEDS: MULTIVITAMIN TAB PO SCH (07:27)
[2023-03-19] MEDS: ADVANCED PROBIOTIC 1250 MG CAPSULE PO SCH (07:27)
[2023-03-19] MEDS: AZITHROMYCIN 250 MG TAB PO SCH (07:27)
[2023-03-19] MEDS: AZELASTINE HCL 0.1% NASAL 200 SPRAYS/27,400 MCG BTL NAE SCH (07:28)
[2023-03-19] MEDS: HYDROXYCHLOROQUINE SULFATE 200 MG TAB PO SCH (07:28)
[2023-03-19 08:28] LABS: Basophils # (auto) 0.05 K/uL (0-0.2); Basophils % (auto) 0.8 %; Eosinophils # (auto) 0.17 K/uL (0-0.50); Eosinophils % (auto) 2.7 %; Hematocrit (blood only) 34.4 % (37.0-47.0); Hemoglobin 11.7 g/dl (12.0-16.0); Immature Granulocytes # (auto) 0.15 K/uL (0.01-0.20); Immature Granulocytes % (auto) 2.4 %; Lymphocytes # (auto) 2.84 K/uL (1.2-3.4); Lymphocytes % (auto) 45.7 %; Mean Corpuscular Hemoglobin 28.1 pg (25.0-34.0); Mean Corpuscular Volume 82.5 fL (80.0-100.0); Mean Platelet Volume 11.7 fL (9.4-12.4); Monocytes # (auto) 0.62 K/uL (0.11-0.59); Neutrophils # (auto) 2.39 K/uL (1.40-6.50); Neutrophils % (auto) 38.4 %; Platelet Count 239 K/uL (130-400); RDW Coefficient of Variation 13.8 % (11.5-14.5); RDW Standard Deviation 41.2 fL (36.4-46.3); Red Blood Count 4.17 M/uL (4.20-5.40); White Blood Count 6.22 K/ul (4.8-10.8)
[2023-03-19 08:35] LABS: BUN Creatinine Ratio 15.8 (10-20); Calcium 8.3 mg/dl (8.6-10.3); Creatinine Clr Calc Pharmacy 60.5 ml/min; Est GFR (African American) 77.6 ml/min; Magnesium 1.9 mg/dl (1.7-2.4); Potassium 3.6 mmol/L (3.5-5.1)
[2023-03-19] MEDS: ENOXAPARIN INJ 40 MG/0.4 ML SYR SQ SCH (08:51)
--- NOTE | 2023-03-19 13:26 | Discharge Summary ---
Date of Service March 19, 2023 Admission HPI Per Admitting Provider She is a 57 years old female with significant past medical history of lichen planus on cyclosporine and hydroxychloroquine, psoriasis, nonallergic rhinitis, GERD, and recently diagnosed COPD apparently has been complaining of minimal diarrhea on Tuesday which is resolving but has had fever with chills, nausea and vomiting associated with diarrhea worse since last evening. She did have cough with some productive phlegm as well but denies any wheezing and/or shortness of breath. She denies any significant abdominal pain, any swelling of the legs, any chest pain and/or palpitation. She was noted to have right lower lobe pneumonitis/pneumonia, started with intravenous ceftriaxone and doxycycline and is admitted to medical floor for continuation of care. Admission Exam Per Admitting Provider Physical Exam: Lying in bed comfortably and mentioned that she has been feeling better already Constitutional: well developed, well nourished, + ill appearing and + obese Eyes: PERRL, conjunctivae normal, anicteric sclerae ENMT: external ear and nose normal, oropharynx normal Neck: trachea midline, no thyromegaly Respiratory: no respiratory distress Auscultation: + diminished lung sounds and + crackles (Fine crackles bibasally and coarse crackles in the right base) Cardiovascular: Rate/Rhythm: regular rate and regular rhythm; not tachycardic Heart Sounds: normal S1 and normal S2; no murmur Extremities: no edema Gastrointestinal (Abdomen): Inspection/Auscultation: normal bowel sounds; abdomen not distended Percussion/Palpation: abdomen soft; abdomen nontender Musculoskeletal: No acute arthritis involving any joint Skin: No rashes and/or lichen planus Neurologic: normal touch/pain/proprioception and moves all extremities; no focal motor deficits Psychiatric: A+Ox3, euthymic affect Lymphatic: no cervical or axillary lymphadenopathy Principal Diagnosis Pneumonia, Gastroenteritis Discharge Exam General: Alert, oriented. No acute distress Skin: No noted rashes or bruises Psych: Appropriate mood and affect Neuro: No gross deficits HEENT: NC/AT CV: RRR, Normal s1, s2. No murmurs appreciated Resp: Breath sounds decreased at the bases bilaterally, no increased effort of breathing. Abdomen:Soft, nontender, nondistended. No guarding. No organomegaly appreciated. Extremities: No edema in lower extremities bilaterally. Discharge Data Allergies Allergy/AdvReac Type Severity Reaction Status Date / Time Penicillins Allergy Unknown RASH & Verified 03/16/23 11:31 BLACKED OUT Consultations 03/16/23 15:59 ED Decision to Admit Stat Ordered Studies 03/16/23 12:31 CT angio chest PE protocol Stat 03/16/23 12:40 CT abd pelvis IV con only Stat Hospital Course (1) Right lower lobe pneumonia: CTA showed right basilar pneumonitis/pneumonia Treated with IV ceftriaxone and PO azithromycin (also added for campylobacter gastroenteritis coverage). Discharged with 8 days of PO cefdinir. One blood culture grew coag negative staph- likely a contaminant On immunosuppressive therapy in the setting of LP Clinically feeling better-continue current medications (2) Nausea vomiting and diarrhea: Campylobacter positive- treated with 3 days of azithromycin 500mg. Acute kidney failure on admission, likely secondary to dehydration Gentle hydration given with copious PO intake encouraged on discharge with home BP monitoring. PCP followup. (3) COPD (chronic obstructive pulmonary disease): May have lung fibrosis CTA 03/16/23- Noted "A 4 mm subpleural nodule within the left lower lobe." PCP follow up recommended. Has had PFT as an out patient, Nonsmoker Confirmed to have severe COPD without any significant improvement with bronchodilators Continue home inhalers. (4) GERD (gastroesophageal reflux disease): Continue PPI (5) Lichen planus: History of lichen planus involving the hands, mouth and esophagus with a stricture She has been on cyclosporine and Plaquenil and her condition is much improved Continue Total Time Total Time Spent Total Time Spent (In Minutes): >30 minutes Discharge Plan Discharge Items Patient Disposition: Home - Self-Care Reason For Visit: PNEUMONIA Discharge Diagnosis: PNEUMONIA Activity: Per Instructions section Non-emergency contact: Primary Care Provider Call non-emergency contact if: your symptoms worsen Follow-up/Referrals: Shahid Perera MD [Primary Care Provider] - Diet: Regular Addtl Attending Provider Instructions: You were admitted with a pneumonia and an acute gastroenteritis that improved after treatment. Concerning your pneumonia: You were treated with antibiotics and will be discharged with the oral medication cefdinir for an additional 8 days. Please take as prescribed. Please follow up with your primary care provider especially if your symptoms worsen. Concerning your gastroenteritis: You tested positive for the bacteria Campylobacter which was likely the cause of your nausea, vomiting and diarrhea. You completed treatment for this in the hospital with a 3 day course of azithromycin 500mg. Please continue to stay hydrated especially if you continue to have diarrhea. Continue to monitor your blood pressure at home with the blood pressure cuff you noted you had at home. Inform your primary care provider if you consistently notice the systolic (top) number is less than 100 or the diastolic (bottom) number is less than 60. As discussed, please also follow up with your primary care provider at a scheduled hospital follow up for this as well. Lung nodule The imaging we did noted a small lung nodule. Based on the size, they recommended follow up with repeat imaging in a year. Please follow up with your primary care provider for this as well. Continue taking all your ther home medications. Pending Studies at Discharge: No Stand-Alone Forms: [facility], Smoking Cessation Medications and DC Order Prescriptions: New cefdinir 300 mg capsule 300 mg PO BID 8 Days Qty: 16 0RF Continued azelastine 137 mcg (0.1 %) aerosol,spray 2 spray INTNAS BID Qty: 30 2RF Rx Instructions: administer into each nostril multivitamin tablet 1 tab PO DAILY omeprazole 40 mg capsule,delayed release(DR/EC) 40 mg PO BID Xiidra 5 % Dropperette 2 drp OPHTHALMIC (EYE) BID Probiotic Acidophilus 1.5 mg (250 million cell) Capsule 1,000 mmu cells PO DAILY latanoprost 0.005 % drops 1 drp ophthalmic (eye) HS cyclosporine 25 mg capsule See Rx Instructions .ROUTE .COMPLEX Rx Instructions: take 2 capsules by mouth every morning and 1 capsule by mouth every evening hydroxychloroquine 200 mg Tablet 200 mg PO BID Discharge Orders: Discharge Order (Routine); Ordered 03/19/23 Ordered By: Cristy Hylton Admission Data Admit Date/Time: 03/16/23 17:53 Attending Provider: Cristy Hylton Admit Provider: Renea Liu Primary Care Provider: Shahid Perera Other Providers: Renea Liu
== END 2023-03-19 14:05 | disposition home or self-care (01) | DRG 194 ==
LOC: ED 09:56 → EDINP 17:53 → SUATTDRO 17:53 → EDINP 20:45 → 2W 03-17 01:12